=== PATIENT | female | born 2000 | race Caucasian/White ===

== ENCOUNTER 2022-07-29 13:59 | Outpatient (OUT) | payer BC, OTHER, SELFPAY ==
--- NOTE | 2022-07-29 14:01 | US_ITS ---
[address] [address] Patient Name: HUGH RIVERA MRN: [id number] date: 2000 Sex: F Assigned Patient Location: US Current Patient Location: US Accession/Order Number: [id number] Exam Date: 07/29/2022 14:05 Report Date: 07/29/2022 15:30 At the request of: PEDRO HUNT Procedure: US OB growth EXAMINATION: US OB growth HISTORY: O26.843 Size of fetus inconsistent with dates in third tri COMPARISON: Ultrasound anatomy 05/03/2022 FINDINGS: Heart Rate: 132.0 bpm Number: 1.0 Position: Cephalic Amniotic Fluid Volume: 25.0 cm Maximum Vertical Pocket: 7.9 cm BIOMETRY: BPD: 8.7 cm cm; 35 weeks 1 days; 97% HC: 31.9 cmcm; 36 weeks 0 days; 92% AC: 30.2 cm cm; 34 weeks 1 days; 88% FL: 6.4 cm cm; 33 weeks 2 days; 57% EFW: 2364.6 grams; 87% FL/AC: 21.4 FL/BPD: 73.9 HC/AC: 1.1 GESTATIONAL AGE: Age by EDC: 32 weeks 4 days BEHZAD by EDC: 09/19/2022 Age by US: 34 weeks 5 days BEHZAD by US: 09/04/2022 IMPRESSION: 1. Single live intrauterine with growth detailed above. Electronically authenticated by: LEIDY MAYORGA Date: 07/29/2022 15:30
== END 2022-07-29 14:00 ==
LOC: US 13:59
PROVIDERS: PCP Obstetrics & Gynecology; Visit Provider Obstetrics & Gynecology
DX: O26.843 Uterine size-date discrepancy, third trimester (principal); Z3A.32 32 weeks gestation of pregnancy
CPT/HCPCS: 76816

== ENCOUNTER 2022-08-24 20:39 | Outpatient (REF) | payer BC, OTHER, SELFPAY | END 2022-08-24 20:40 | disposition home or self-care (01) | LOC: LAB 20:39 | PROVIDERS: PCP Obstetrics & Gynecology; Visit Provider Obstetrics & Gynecology | DX: Z34.93 Encounter for supervision of normal pregnancy, unspecified, third trimester (principal) | CPT/HCPCS: 87081; 87150 ==

== ENCOUNTER 2022-09-15 05:05 | Inpatient (IN) | payer BC, OTHER, SELFPAY ==
[2022-09-15] VITALS (69 sets, daily range): BP systolic 97–163; BP diastolic 53–102; PULSE 80–130; RESP 16–20; TEMP 36.6–37.8
[2022-09-15 05:56] LABS: Hematocrit 35.4 % (36.0-48.0); Hemoglobin 11.7 g/dL (12.0-16.0); Mean Corpuscular HGB Conc 33.1 g/dL (29.9-35.2); Mean Corpuscular Hemoglobin 27.4 pg (26.7-34.0); Mean Corpuscular Volume 82.9 fL (81.0-99.0); Mean Platelet Volume 12.3 fL (9.5-13.5); Platelet Count 233 10^3/uL (150-450); Red Blood Count 4.27 10^6/uL (4.20-5.40); Red Cell Distribution Width 14.2 % (11.0-15.0); White Blood Count 14.2 10^3/uL (4.0-11.0)
[2022-09-15] MEDS: 0.9 % SODIUM CHLORIDE 1,000 ML 125 ML IV (06:13)
[2022-09-15] MEDS: AMPICILLIN SODIUM 2,000 MG in 0.9 % SODIUM CHLORIDE 100 ML 200 MG IV (06:32)
[2022-09-15] MEDS: OXYTOCIN 10 UNIT in 0.9 % SODIUM CHLORIDE 500 ML 6.012 UNIT IV (06:34)
--- NOTE | 2022-09-15 07:20 | W.PC.ACHO ---
Registration Status: ADM IN Primary Language: [place] Preferred Language: [place] Active Medications Generic Name Dose Route Start Last Admin Trade Name Carlosq PRN Reason Stop Dose Admin Carboprost Tromethamine 250 mcg 09/15/22 05:07 Carboprost Tromethamine 250 Mcg/Ml 1 Ml Vial IM Q15M PRN Bleeding Diphenhydramine HCl 25 mg 09/15/22 07:02 Diphenhydramine Hcl 50 Mg/Ml (1ml) Vial IV Q6H PRN Itching Ephedrine Sulfate 5 mg 09/15/22 07:02 Ephedrine Sulfate 50 Mg/Ml Vial IV Q5M PRN Blood Pressure - Low Fentanyl Citrate 100 mcg 09/15/22 07:02 Fentanyl Citrate/Pf 100 Mcg/2 Ml Vial EPIDURAL Q4H PRN Pain Sodium Chloride 1,000 mls @ 125 mls/hr 09/15/22 05:15 09/15/22 06:13 Sodium Chloride 0.9% 1,000 Ml IV 125 mls/hr .Q8H MEHDI Administration Oxytocin 10 unit/ Sodium 501 mls @ 6.012 mls/hr 09/15/22 05:15 09/15/22 06:34 Chloride IV 2 milliunit/min Q24H MEHDI 6.012 mls/hr Administration 2 MILLIUNIT/MIN Oxytocin 20 unit/ Sodium 1,002 mls @ 125 mls/hr 09/15/22 07:15 Chloride IV 09/15/22 15:14 Q8H PRN delivery Protocol Sodium Chloride 1,000 mls @ 1,000 mls/hr 09/15/22 07:02 Sodium Chloride 0.9% 1,000 Ml IV 09/15/22 08:01 .Q1H ONE Ropivacaine/Sodium Chloride 400 mg in 200 mls @ 6 mls/hr 09/15/22 07:15 Naropin 0.2% 400 Mg/200 Ml Bag EPIDURAL Q24H MEHDI Ampicillin 1,000 mg/ Sodium 50 mls @ 100 mls/hr 09/15/22 10:30 Chloride IV Q4H MEHDI Lidocaine 5 ml 09/15/22 05:07 Lidocaine Viscous 2% 15 Ml Topical Solution TOPICAL DIRECTED PRN Pain Lidocaine 1 ml 09/15/22 05:07 Lidocaine Hcl 1% 200 Mg/20 Ml Mdv INJ DIRECTED PRN Pain Lidocaine 5 ml 09/15/22 07:02 Lidocaine Hcl 2% Pf 100 Mg/5 Ml Vial INJ Q1H PRN Labor Pain Methylergonovine Maleate 0.2 mg 09/15/22 05:07 Methylergonovine Maleate 0.2 Mg Tablet PO Q4H PRN Uterine Contractility/Contract Methylergonovine Maleate 0.2 mg 09/15/22 05:07 Methylergonovine Maleate 0.2 Mg/Ml Ampule IM ONCE PRN Uterine Contractility/Contract Misoprostol 600 mcg 09/15/22 05:07 Misoprostol 100 Mcg Tablet PO ONCE PRN Uterine Bleeding Misoprostol 800 mcg 09/15/22 05:07 Misoprostol 100 Mcg Tablet SL ONCE PRN Uterine Bleeding Misoprostol 1,000 mcg 09/15/22 05:07 Misoprostol 100 Mcg Tablet MN ONCE PRN Uterine Bleeding Ondansetron HCl 4 mg 09/15/22 05:07 Ondansetron Pf 4 Mg/2 Ml Vial IV Q6H PRN Nausea And Vomiting Ondansetron HCl 4 mg 09/15/22 05:07 Ondansetron 4 Mg Rapdis Tablet SL Q6H PRN Nausea And Vomiting Oxytocin 10 unit 09/15/22 05:07 Oxytocin 100 Unit/10 Ml Vial IM ONCE PRN Uterine Bleeding Diet Category Date Time Status Clear Liquid Diet Diet 09/15/22 Breakfast Active Consults Category Date Time Status Consult to Anesthesiology Routine Cons 09/15/22 Ordered IV Insertion/Site Date of IV Line Insertion [20g 09/15/22 right Wrist] IV Insertion Time [20g right 05:40 Wrist] Neurology Patient orientation (short person,place,time,situation list) Respiratory Oxygen Delivery Method Room Air
[2022-09-15] MEDS: 0.9 % SODIUM CHLORIDE 1,000 ML 1000 ML IV ×2 (09:40→12:31)
[2022-09-15] MEDS: AMPICILLIN SODIUM 1,000 MG in 0.9 % SODIUM CHLORIDE 50 ML 100 MG IV ×2 (10:20→13:44)
[2022-09-15] MEDS: FENTANYL CITRATE/PF 100 MCG/2 ML VIAL EPIDURAL (11:14)
[2022-09-15] MEDS: ROPIVACAINE HCL/PF 400 MG/200 ML PREMIX 10 MG EPIDURAL (11:14)
[2022-09-15] MEDS: KETOROLAC TROMETHAMINE 30 MG/ML VIAL IVP (17:30)
--- NOTE | 2022-09-15 17:37 | PM.OBPRCVD ---
Procedure Intrapartal events: None Induction method: artificial rupture of membranes Delivery augmentation: rupture of membranes Delivery monitor: external FHT and external uterine Route of delivery: Laceration description: periurethral - 1st degree Delivery repair: Vicryl Estimated blood loss (mL): 325 Anesthesia type: Epidural Disposition: floor Delivery date: 09/15/22 Gender: male presentation: vertex Placental delivery description: Spontaneous cord description: 3 Vessels
--- NOTE | 2022-09-15 19:35 | W.PC.ACHO ---
Registration Status: ADM IN Primary Language: Belarusian Preferred Language: Belarusian Active Medications Generic Name Dose Route Start Last Admin Trade Name Freq PRN Reason Stop Dose Admin Acetaminophen 650 mg 09/15/22 17:49 Acetaminophen 325 Mg Tablet PO Q6H PRN Mild Pain Al Hydroxide/Mg Hydroxide 2,400 mg 09/15/22 17:49 Magnesium Hydroxide 2,400 Mg/10 Ml Oral.Susp PO Q6H PRN Dyspepsia Benzocaine/Menthol 1 applic 09/15/22 17:49 Benzocaine/Menthol 85 Gram Bottle TOPICAL ONCE PRN Pain Carboprost Tromethamine 250 mcg 09/15/22 05:07 Carboprost Tromethamine 250 Mcg/Ml 1 Ml Vial IM Q15M PRN Bleeding Diphenhydramine HCl 25 mg 09/15/22 07:02 Diphenhydramine Hcl 50 Mg/Ml (1ml) Vial IV Q6H PRN Itching Docusate Sodium 100 mg 09/16/22 09:00 Docusate Sodium 100 Mg Capsule PO BID MEHDI Ephedrine Sulfate 5 mg 09/15/22 07:02 Ephedrine Sulfate 50 Mg/Ml Vial IV Q5M PRN Blood Pressure - Low Fentanyl Citrate 100 mcg 09/15/22 07:02 09/15/22 11:14 Fentanyl Citrate/Pf 100 Mcg/2 Ml Vial EPIDURAL 100 mcg Q4H PRN Administration Pain Sodium Chloride 1,000 mls @ 125 mls/hr 09/15/22 05:15 09/15/22 14:15 Sodium Chloride 0.9% 1,000 Ml IV Infused .Q8H MEHDI Infusion Oxytocin 10 unit/ Sodium 501 mls @ 6.012 mls/hr 09/15/22 05:15 09/15/22 17:20 Chloride IV 0 milliunit/min Q24H MEHDI 0 mls/hr Infusion 2 MILLIUNIT/MIN Ropivacaine/Sodium Chloride 400 mg in 200 mls @ 6 mls/hr 09/15/22 07:15 09/15/22 11:14 Naropin 0.2% 400 Mg/200 Ml Bag EPIDURAL 10 ml/hrs Q24H MEHDI 10 mls/hr Administration Ampicillin 1,000 mg/ Sodium 50 mls @ 100 mls/hr 09/15/22 10:30 09/15/22 14:15 Chloride IV Infused Q4H MEHDI Infusion Oxytocin 20 unit/ Sodium 1,002 mls @ 125 mls/hr 09/15/22 17:41 09/15/22 17:51 Chloride IV 09/16/22 01:41 125 mls/hr Q8H STA 125 mls/hr Administration Protocol Oxytocin 20 unit/ Sodium 1,002 mls @ 125 mls/hr 09/15/22 18:00 Chloride IV 09/16/22 01:59 Q8H MEHDI Ibuprofen 600 mg 09/15/22 17:49 Ibuprofen 600 Mg Tablet PO Q6H PRN Moderate Pain Lidocaine 5 ml 09/15/22 05:07 Lidocaine Viscous 2% 15 Ml Topical Solution TOPICAL DIRECTED PRN Pain Lidocaine 1 ml 09/15/22 05:07 Lidocaine Hcl 1% 200 Mg/20 Ml Mdv INJ DIRECTED PRN Pain Lidocaine 5 ml 09/15/22 07:02 Lidocaine Hcl 2% Pf 100 Mg/5 Ml Vial INJ Q1H PRN Labor Pain Methylergonovine Maleate 0.2 mg 09/15/22 05:07 Methylergonovine Maleate 0.2 Mg Tablet PO Q4H PRN Uterine Contractility/Contract Methylergonovine Maleate 0.2 mg 09/15/22 05:07 Methylergonovine Maleate 0.2 Mg/Ml Ampule IM ONCE PRN Uterine Contractility/Contract Misoprostol 600 mcg 09/15/22 05:07 Misoprostol 100 Mcg Tablet PO ONCE PRN Uterine Bleeding Misoprostol 800 mcg 09/15/22 05:07 Misoprostol 100 Mcg Tablet SL ONCE PRN Uterine Bleeding Misoprostol 1,000 mcg 09/15/22 05:07 Misoprostol 100 Mcg Tablet PA ONCE PRN Uterine Bleeding Ondansetron HCl 4 mg 09/15/22 05:07 Ondansetron Pf 4 Mg/2 Ml Vial IV Q6H PRN Nausea And Vomiting Ondansetron HCl 4 mg 09/15/22 05:07 Ondansetron 4 Mg Rapdis Tablet SL Q6H PRN Nausea And Vomiting Oxytocin 10 unit 09/15/22 05:07 Oxytocin 100 Unit/10 Ml Vial IM ONCE PRN Uterine Bleeding Senna 17.2 mg 09/15/22 20:00 Sennosides 8.6 Mg Tablet PO QHS PRN Constipation Simethicone 80 mg 09/15/22 17:49 Simethicone 80 Mg Tab.Chew PO QID PRN Abdominal Distention Temazepam 15 mg 09/15/22 20:00 Temazepam 15 Mg Capsule PO BEDTIME PRN Sleep Witch Ena/Glycerin 1 each 09/15/22 17:49 Glycerin/Witch Ena 1 Each Jar TOPICAL ONCE PRN Pain Diet Category Date Time Status Regular Consistency Diet Diet 09/15/22 Dinner Active Consults Category Date Time Status Consult to Anesthesiology Routine Cons 09/15/22 Ordered IV Insertion/Site Date of IV Line Insertion [20g 09/15/22 right Wrist] IV Insertion Time [20g right 05:40 Wrist] Neurology Patient orientation (short person,place,time,situation list) Respiratory Oxygen Delivery Method Room Air Catheter Urinary Catheter Date of 09/15/22 Insertion [Urethral] Urinary Catheter Time of 11:15 Insertion [Urethral]
[2022-09-15] MEDS: ACETAMINOPHEN 325 MG TABLET 650 MG PO (21:40)
[2022-09-16] VITALS (7 sets, daily range): BP systolic 121–149; BP diastolic 76–93; PULSE 96–110; RESP 14–16; TEMP 36.4–36.9
[2022-09-16] MEDS: IBUPROFEN 600 MG TABLET PO ×2 (05:10→19:47)
[2022-09-16 07:43] LABS: Basophils Percent Auto 0.2 % (0.2-2.0); Eosinophils Percent Auto 0.3 % (0.9-7.0); Hematocrit 30.1 % (36.0-48.0); Hemoglobin 9.9 g/dL (12.0-16.0); Immature Granulocytes Abs Auto 0.07 10^3/uL (0.00-0.03); Immature Granulocytes Pct Auto 0.4 % (0.0-0.5); Lymphocytes Absolute Auto 2.8 10^3/uL (1.2-3.8); Lymphocytes Percent Auto 17.4 % (20.5-60.0); Mean Corpuscular HGB Conc 32.9 g/dL (29.9-35.2); Mean Corpuscular Hemoglobin 27.4 pg (26.7-34.0); Mean Corpuscular Volume 83.4 fL (81.0-99.0); Mean Platelet Volume 11.9 fL (9.5-13.5); Monocytes Absolute Auto 0.6 10^3/uL (0.3-0.8); Neutrophils Absolute Auto 12.4 10^3/uL (1.4-6.5); Neutrophils Percent Auto 77.7 % (43.0-75.0); Platelet Count 208 10^3/uL (150-450); Red Blood Count 3.61 10^6/uL (4.20-5.40); Red Cell Distribution Width 14.1 % (11.0-15.0)
--- NOTE | 2022-09-16 08:05 | PM.OBPN ---
OB - PN: Subj Subjective Patient comments: no complaints [place] status: doing well Exam Narrative Exam Narrative: s/p . 1 day post Constitutional Vital Signs, click to edit/add: Last Vital Signs Temp 98.5 F 09/16/22 04:34 Pulse 86 09/15/22 23:56 Resp 16 09/16/22 04:34 BP 116/69 09/15/22 23:56 O2 Del Method Room Air 09/16/22 04:34 Documenting provider has reviewed patient's vital signs: yes Common normals: no apparent distress HENMT Common normals: normocephalic Chest Common normals: inspection of chest normal Respiratory Common normals: normal respiratory effort Effort & inspection: able to speak in complete sentences Auscultation: clear to auscultation bilaterally Cardio Common normals: regular rate and regular rhythm Rate: regular rate Rhythm: regular rhythm GI Common normals: Normal to inspection, nondistended, normoactive bowel sounds present Palpation: soft Common normals: no CVA tenderness OB/external & speculum: deferred Back & Pelvis Common normals: no CVA tenderness Extremity Common normals: normal to inspection Neuro Common normals: oriented x3 Sensorium/orientation: awake, alert, oriented to person, oriented to place and oriented to time Psych Attitude: calm Results Labs Labs: Short CBC 09/16/22 Range/Units 07:20 WBC 16.0 H (4.0-11.0) 10^3/uL Hgb 9.9 L (12.0-16.0) g/dL Hct 30.1 L (36.0-48.0) % Plt Count 208 (150-450) 10^3/uL OB - PN: A/P Plan - Vaginal Delivery day: 1 Plan: routine care Time Spent with Patient Time: Total time spent is greater than 50% in coordination of care (as documented) at patient's floor/unit and/or counseling patient: Total time spent with greater than 50% in coordination of care (as documented) at patient's floor/unit and/or counseling patient: less than 15 minutes
[2022-09-16] MEDS: ACETAMINOPHEN 325 MG TABLET 650 MG PO ×2 (08:53→16:09)
[2022-09-16] MEDS: FERROUS SULFATE 325 MG TABLET PO (08:53)
[2022-09-16] MEDS: DOCUSATE SODIUM 100 MG CAPSULE PO (08:53)
== END 2022-09-16 20:15 | disposition home or self-care (01) | DRG 807 ==
PROVIDERS: Admitting Provider Obstetrics & Gynecology; PCP Obstetrics & Gynecology; Visit Provider Obstetrics & Gynecology
DX: O99.824 Streptococcus B carrier state complicating childbirth (principal); Z37.0 Single live birth; O70.0 First degree perineal laceration during delivery; Z3A.39 39 weeks gestation of pregnancy; O99.62 Diseases of the digestive system complicating childbirth; K21.9 Gastro-esophageal reflux disease without esophagitis
CPT/HCPCS: 36415; 51702; 59050; 59410; 80307; 85025; 85027; 86850; 86900; 86901; 96365; 96366; 96368; 96375; 96376

== ENCOUNTER 2022-12-06 20:49 | Outpatient (REF) | payer BC, OTHER, SELFPAY ==
[2022-12-10 13:08] LABS: Age Gdln ACOG Testing Note (.); IGP, rfx Aptima HPV ASCU Note (.)
== END 2022-12-06 20:50 | disposition home or self-care (01) ==
LOC: LAB 20:49
PROVIDERS: PCP Obstetrics & Gynecology; Visit Provider Obstetrics & Gynecology
DX: Z01.419 Encounter for gynecological examination (general) (routine) without abnormal findings (principal)
CPT/HCPCS: G0145

== ENCOUNTER 2024-02-23 16:56 | Outpatient (REF) | payer BC, OTHER, SELFPAY ==
[2024-03-01 14:07] LABS: Age Gdln ACOG Testing Note (.); IGP, rfx Aptima HPV ASCU Note (.)
== END 2024-02-23 16:57 | disposition home or self-care (01) ==
LOC: LAB 16:56
PROVIDERS: PCP Obstetrics & Gynecology; Visit Provider Obstetrics & Gynecology
DX: Z01.419 Encounter for gynecological examination (general) (routine) without abnormal findings (principal)
CPT/HCPCS: 88175

== ENCOUNTER 2025-02-26 18:56 | Outpatient (REF) | payer OTHER, SELFPAY ==
--- OUTSIDE RECORDS SUMMARY | 2025-02-26 15:00 | XMS_ITS | Encounter Summary ---
Author Organization [facility] Address [address] [place] [address] Care Team Providers Care Gas Reverser Name Role Phone Ania Barahona MD Primary Care Provider [phone] Reason for Visit * ReasonCommentsGynecologic Exam Encounter Details DateTypeDepartmentCare Team (Latest Contact Info)Yqylmymsefa53/30/2025 3:00 PM ESTProcedure Visit [facility] [address] [place] [address] Pamella Guardado PA [address] [place], [place] [id number] Well woman exam with routine gynecological exam Social History Tobacco UseTypesPacks/DayYears UsedDateSmoking Tobacco: NeverSmokeless Tobacco: NeverAlcohol UseStandard Drinks/WeekCommentsYes0 (1 standard drink = 0.6 oz pure alcohol)PHQ-2AnswerDate RecordedPatient Health Questionnaire-2 Toqlc45704/08/2024 Housing Stability Vital SignAnswerDate RecordedIn the last 12 months, was there a time when you were not able to pay the mortgage or rent on time?Patient evntnaa2301/05/2023In the last 12 months, how many places have you lived?1 01/05/2023In the last 12 months, was there a time when you did not have a steady place to sleep or slept in ashelter (including now)?No01/05/2023Humiliation, Afraid, Rape, and Kick questionnaireAnswerDate RecordedWithin the last year, have you been afraid of your partner or ex-partner?No02/04/2025Within the last year, have you been humiliated or emotionally abused in other ways by your partner or ex-partner?No02/04/2025Within the last year, have you been kicked, hit, slapped, or otherwise physically hurt by your partner or ex-partner?No 02/04/2025Within the last year, have you been raped or forced to have any kind of sexual activity by your partner or ex-partner?No02/04/2025Social Connection and Isolation PanelAnswerDate RecordedIn a typical week, how many times do you talk on the phone with family, friends, or neighbors?More than three times a week02/04/2025How often do you get together with friends or relatives?More than three times a week02/04/2025How often do you attend restoration or confucianism services?Never02/04/2025Do you belong to any clubs or organizations such as restoration groups, unions, fraternal or athletic groups, or school groups?No 02/04/2025How often do you attend meetings of the clubs or organizations you belong to?Never02/04/2025re you , , , , never , or living with a partner?Fdktrqx6702/04/2025UDIT-CAnswerDate RecordedQ1: How often do you have a drink containing alcohol?Monthly or less02/04/2025Q2: How many drinks containing alcohol do you have on a typical day when you are drinking?1 or Q3: How often do you have six or more drinks on one occasion?Never02/04/2025Overall Financial Resource Strain (CARDIA)AnswerDate RecordedHow hard is it for you to pay for the very basics like food, housing, medical care, and heating?Not hard at all02/04/2025[facility] - Occupational Stress QuestionnaireAnswerDate RecordedDo you feel stress - tense, restless, nervous, or anxious, or unable to sleep at night because yourmind is troubled all the time - these days?To some llekfs1902/04/2025 Exercise Vital SignAnswerDate RecordedOn average, how many days per week do you engage in moderate to strenuous exercise (like a brisk walk)?0 days02/04/2025On average, how many minutes do you engage in exercise at this level?0 min 02/04/2025Hunger Vital SignAnswerDate RecordedWithin the past 12 months, you worried that your food would run out before you got the money to buymore.Never true02/04/2025Within the past 12 months, the food you bought just didn't last and you didn't have money to get more.Never true02/04/2025PRAPARE - TransportationAnswerDate RecordedIn the past 12 months, has lack of transportation kept you from medical appointments or from getting medications?No 02/04/2025In the past 12 months, has lack of transportation kept you from meetings, work, or from getting things needed for daily living?No02/04/2025 Housing Stability Vital SignAnswerDate RecordedIn the last 12 months, was there a time when you were not able to pay the mortgage or rent on time?No02/04/2025In the past 12 months, how many times have you moved where you were living?1 02/04/2025t any time in the past 12 months, were you homeless or living in a residential (including now)?No02/04/2025B1300 Health LiteracyAnswerDate RecordedHow often do you need to have someone help you when you read instructions, pamphlets, or other written material from your doctor or pharmacy?Never 02/04/2025CommentsNoSex and Gender InformationValueDate RecordedSex Assigned at RmkzwRbbnkk68/25/2023 8:35 AM EDTLegal EweHsakpo53/15/2023 6:40 PM EDTGender KrrjbhquEjvymt75/25/2023 8:35 AM EDTSexual OrientationNot on file documented as of this encounter Last Filed Vital Signs Vital SignReadingTime TakenCommentsBlood Qtatohui898/8202/26/2025 3:00 PM EST Pulse--Temperature--Respiratory Rate--Oxygen Saturation--Inhaled Oxygen Concentration--Wuwmyd03.7 kg (200 lb)02/26/2025 3:00 PM PDPNrsljh632.2 cm (5' 7 )02/26/2025 3:00 PM ESTBody Mass Index31.321 3:00 PM ESTdocumented in this encounter Progress Notes * MANUELITO Otoole - 02/26/2025 3:00 PM EST Reason for Appointment: Patient ID: Mely Arce is a 24 y.o. female who presents for Gynecologic Exam Patient presents today for Annual Exam. 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 01/06/2023 Familial adenomatous polyposis 03/09/2023 Encounter for other contraceptive management 09/14/2023 Weight gain 12/02/2023 Well adult health check 02/05/2025 Major depressive disorder, single episode, moderate (HCC) 02/05/2025 Elevated blood pressure reading without diagnosis of hypertension 02/05/2025 Obesity (BMI 30-39.9) 02/05/2025 Resolved Ambulatory Problems Diagnosis Date Noted No Resolved Ambulatory Problems Past Medical History: Diagnosis Date Ovarian cyst, left 06/07/2020 Rectal bleeding HISTORY PAST MEDICAL HISTORY SOCIAL HISTORY Past Medical History: Diagnosis Date Ovarian cyst, left 06/07/2020 Rectal bleeding Social History Tobacco Use Smoking status: Never Smokeless tobacco: Never Substance Use Topics Alcohol use: Yes Alcohol/week: 0.0 - 1.0 standard drinks of alcohol Drug use: Never FAMILY HISTORY Family History Problem Relation Name Age of Onset Asthma Mother Cancer Maternal Grandfather Frankie SURGICAL HISTORY History reviewed. No pertinent surgical history. REVIEW OF SYSTEMS Review of Systems: Review of Systems Constitutional: Negative. HENT: Negative. Eyes: Negative. Respiratory: Negative. Cardiovascular: Negative. Gastrointestinal: Negative. Genitourinary: Negative. Musculoskeletal: Negative. Skin: Negative. Neurological: Negative. All other systems reviewed and are negative. Hematological: Negative. Endocrine: Negative. Allergic/Immunologic: Negative. OBJECTIVE Objective: Physical Exam Constitutional: Appearance: Normal appearance. Genitourinary: Right Adnexa: not tender and no mass present. Left Adnexa: not tender and no mass present. No cervical discharge. Breasts: Breasts are soft. Right: Normal. Left: Normal. HENT: Head: Normocephalic. Nose: Nose normal. Mouth/Throat: Mouth: Mucous membranes are moist. Cardiovascular: Rate and Rhythm: Normal rate. Pulmonary: Effort: Pulmonary effort is normal. Abdominal: General: Bowel sounds are normal. Palpations: Abdomen is soft. Musculoskeletal: General: Normal range of motion. Cervical back: Normal range of motion. Neurological: General: No focal deficit present. Mental Status: She is alert. Skin: General: Skin is warm and dry. Psychiatric: Mood and Affect: Mood normal. Vitals and nursing note reviewed. Exam conducted with a media production manager present. Vitals: Estimated body mass index is 31.32 kg/m?? as calculated from the following: Height as of this encounter: 5' 7 . Weight as of this encounter: 200 lb. BP: 128/82 Patient's last menstrual period was 02/08/2025 (approximate). Assessment/Plan ICD-10-CM 1. Well woman exam with routine gynecological exam Z01.419 Pap Smear Assessment/Plan Annual Exam: Patient presents today for an annual exam. Patient states she is doing well and has no complaints. Pap was obtained without difficulty. No orders of the defined types were placed in this encounter. Follow Up: Patient is to return in one year for annual unless needed otherwise. Documented by Nelly Winters MA on behalf of: MANUELITO Otoole documented in this encounter Plan of Treatment DateTypeDepartmentCare Team (Latest Contact Info)Kwsvttixqty88/06/2027 3:00 PM ESTProcedure Visit [facility] [address] [place] [phone] Pamella Guardado PA [address] [place], [place] [id number] NameTypePriorityAssociated DiagnosesOrder SchedulePap SmearPathology and CytologyRoutine Well woman exam with routine gynecological exam Ordered: 02/26/2025documented as of this encounter Visit Diagnoses Diagnosis Well woman exam with routine gynecological exam Routine gynecological examination documented in this encounter Care Teams Team MemberRelationshipSpecialtyStart DateEnd Date Ania Barahona MD [address] [place] [address] PCP - General07/28/22documented as of this encounter
--- OUTSIDE RECORDS SUMMARY | 2025-02-26 19:01 | XMS_ITS | Clinical Summary ---
Author Organization [facility] Address [address] [facility] [place] [address] Care Team Providers Care Fish Pitcher Name Role Phone Ania Barahona MD Primary Care Provider [phone] Allergies No known active allergies Medications MedicationSigDispense QuantityRefillsLast FilledStart DateEnd DateStatus cetirizine (ZyrTEC ALLERGY) 10 MG tablet Take 10 mg by mouth in the morning.Active metFORMIN (Glucophage) 500 MG tablet Indications:Weight gain,Encounter for weight managementTake 1 tablet (500 mg) by mouth in the morning. Take with meals. 90 tablet /ctive citalopram (CeleXA) 20 MG tablet Indications:Mood changesTake 1 tablet (20 mg) by mouth Daily 90 tablet /ctive drospirenone-ethinyl estradiol (Kiersten) 3-0.03 MG tablet Indications:Encounter for other contraceptive managementTake 1 tablet by mouth in the morning. 84 tablet 5Active omeprazole (PriLOSEC) [address] capsule Take 20 mg by mouth in the morning. Take before meals./10/2024 Discontinued(Other) drospirenone-ethinyl estradiol (Kiersten) 3-0.03 MG tablet Indications:Encounter for other contraceptive managementTake 1 tablet by mouth in the morning. 84 tablet /Discontinued(Reorder) metroNIDAZOLE (Flagyl) 500 MG tablet Indications:BV (bacterial vaginosis)Take 1 tablet (500 mg) by mouth in the morning and 1 tablet (500 mg) before bedtime. Do all this for 7 days. Do not drink alcohol while taking this medication. 14 tablet Discontinued(Other) Active Problems ProblemNoted DateDiagnosed DateWell adult health check02/05/2025 Assessment & Plan (02/05/2025 3:49 PM EST): Modest Alcohol consumption No Tobacco Seat Belt use Exercise Regularly No Text Drive Social Accountability Add Multivitamin with FeSo4 and Calcium and Vitamin D Major depressive disorder, single episode, qzzpvebr56/09/2025 Assessment & Plan (02/05/2025 3:48 PM EST): In Remission Elevated blood pressure reading without diagnosis of fnhupighglur46/09/2025 Assessment & Plan (02/05/2025 4:02 PM EST): Our specific goals, for your hypertension, is to keep your blood pressure less than 140/90, and theimportance of weight control. We made recommendations on how to control your blood pressure, and minimize your risk of these copmplications. We also discussed your current barriers to a healthy living and importance of healthy diet and exercise. Prior to your visit today we have reviewed your chart and formed a plan to assist with providing you the best possible care. We reviewed the possible complications of hypertension including, stroke, heart failure and kidney impairment. In addition, we discussed your medications, the importance of taking them as prescribed. DASH diet handouts Obesity (BMI 30-39.9)02/05/2025 Assessment & Plan (02/05/2025 4:10 PM EST): Exercise Regularly Reduce Portions Reduce Salt intake in the form of Preservatives in Boxed foods, Canned good, TV dinner Consider Adipex if BP is better at PRIM[employer] POWDER BLEND[employer] WET Weight gain12/02/2023Encounter for other contraceptive fqmscazdon30/17/2024 Familial adenomatous clwadkclu72/10/2024ongenital hypertrophy of retinal pigment epithelium of right eye01/06/2023Seasonal allergic ualyxjob50/30/2023 Encounters DateTypeDepartmentCare VezwOiqnxugvgva02/30/2025 3:00 PM ESTProcedure Visit [facility] [address] [place] [address] Pamella Guardado PA Well woman exam with routine gynecological exam02/26/2025amboo flowsheet [facility] [address] [place] [address] Pamella Guardado PA 02/10/2025Refill [facility] [address] [place] [address] Michael Azevedo DO Encounter for other contraceptive dukcwaixpw89/11/2025bstract [facility] [address] [facility] [address] [place] [phone] Ania Barahona MD 02/05/2025 4:00 PM ESTOffice Visit [facility] [address] [facility] [address] [place] [phone] Ania Barahona MD Well adult health check (Primary Dx); Major depressive disorder, single episode, moderate (HCC); Elevated blood pressure reading without diagnosis of hypertension; Obesity (BMI 30-39.9)02/05/2025amboo flowsheet [facility] [address] [facility] [address] [place] [phone] Ania Barahona MD 02/05/20254137Vzaecf96/08/6495Zqsokb82/27/1352Jdgfsm05/26/2025Telephone [facility] [address] [place] [address] Thea Arzate MA 01/18/2025Telephone [facility] [address] [place] [address] Nelly Winters MA 12/13/2024Refill [facility] [address] [place] [address] Danitza Garcia LPN Mood changesfrom Last 3 Months Immunizations ImmunizationAdministration DatesNext DagZVzN4007/13/2006DTaP, Unspecified 10/22/2002,02/06/2002,2001,2001HPV, Ozhysnvdzutu24/28/2016, 11/28/2014,09/20/2014Hep A, ped/adol, 2 dose03/27/2015,09/20/2014Hep B, Adolescent or Xoutltslg47/06/2003,2001,2001HiB, unspecified 07/30/2002,02/06/2002,2001,2001IPV07/13/2006,02/06/2002,2001, 2001Influenza, injectable, MDCK, preservative free, ledejbydrurb17/30/2021 Influenza, injectable, quadrivalent, preservative free01/06/2023,12/21/2019MMR 07/30/2002MMRV07/13/2006Meningococcal ZBV4U9410/03/2019,09/20/2014Pneumococcal Conjugate PCV ,2001Tdap09/20/20143922Iialqxemg78/01/2015 Family History Medical HistoryRelationNameCommentsCancerMaternal GrandfatherDennisAsthmaMother RelationNameStatusCommentsFatherAliveMaternal GrandfatherDennisMotherAlive Social History Tobacco UseTypesPacks/DayYears UsedDateSmoking Tobacco: NeverSmokeless Tobacco: Never Tobacco Cessation:Counseling Given: Not Answered Alcohol UseStandard Drinks/WeekCommentsYes0 (1 standard drink = 0.6 oz pure alcohol)PHQ-2AnswerDate RecordedPatient Health Questionnaire-2 Qscme33704/08/2024 Housing Stability Vital SignAnswerDate RecordedIn the last 12 months, was there a time when you were not able to pay the mortgage or rent on time?Patient ntaxpyy3601/05/2023In the last 12 months, how many places have you lived?1 01/05/2023In the last 12 months, was there a time when you did not have a steady place to sleep or slept in [facility] (including now)?No01/05/2023Humiliation, Afraid, Rape, and Kick questionnaireAnswerDate [...] times a week02/04/2025How often do you attend buddhism or holiness services?Never02/04/2025Do you belong to any clubs or organizations such as buddhism groups, unions, fraternal or athletic groups, or school groups?No 02/04/2025How often do you attend meetings of the clubs or organizations you belong to?Never02/04/2025re you , , , , never , or living with a partner?Jsesckj9902/04/2025UDIT-CAnswerDate RecordedQ1: How often do you have a [...] housing, medical care, and heating?Not hard at all02/04/2025[facility] [place] of Occupational Health - Occupational Stress QuestionnaireAnswerDate RecordedDo you feel stress - tense, restless, nervous, or anxious, or unable to sleep at night because yourmind is troubled all the time - these days?To some nmvgcg1502/04/2025 Exercise Vital SignAnswerDate RecordedOn average, how many [...] were you homeless or living in a assisted (including now)?No02/04/2025B1300 Health LiteracyAnswerDate RecordedHow often do you need to have someone help you when you read instructions, pamphlets, or other written material from your doctor or pharmacy?Never 02/04/2025CommentsNoSex and Gender InformationValueDate RecordedSex Assigned at RgjyfVnulus07/25/2023 8:35 AM EDTLegal IiqBfrfpo61/15/2023 6:40 PM EDTGender YdvrdwmjGxccsy09/25/2023 8:35 AM EDTSexual OrientationNot on file Last Filed Vital Signs Vital SignReadingTime TakenCommentsBlood Lcekszpt174/8212/ 3:00 PM EST Mimza95007/09/2025 3:35 PM ESTTemperature--Respiratory Fkgy378203/08/2022 8:06 AM ESTOxygen Mztxqywxev71%02/05/2025 3:35 PM ESTInhaled Oxygen Concentration-- Whoeio86.7 kg (200 lb)02/26/2025 3:00 PM KRSHzhxrj453.2 cm (5' 7 )02/26/2025 3:00 PM ESTBody Mass Index31.321 3:00 PM EST Plan of Treatment DateTypeDepartmentCare Team (Latest Contact Info)Pdazrmqxhrt62/06/2027 3:00 PM ESTProcedure Visit [facility] [address] [place] [address] Pamella Guardado PA [address] [facility] [address] [place] [address] Health MaintenanceDue DateLast DoneCommentsInfluenza Vaccine (#1)10/29/2024 01/06/2023, 02/26/2021, 12/21/2019Pneumococcal Vaccine: Pediatrics (0 to 5 Years) and At-Risk Patients (6 to 64 Years)Aged Out2001, 2001No longer eligible based on patient's age to complete this topic Insurance Care Teams Team MemberRelationshipSpecialtyStart DateEnd Date [place], Rugen M, MD [address] [address] [facility] - General07/28/22
--- OUTSIDE RECORDS SUMMARY | 2025-02-26 19:01 | XMS_ITS | Encounter Summary ---
Author Organization [facility] Address [address] [facility] [place] [address] Care Team Providers Care Senior Trial Attorney Name Role Phone Ania Barahona MD Primary Care Provider [phone] Encounter Details DateTypeDepartmentCare Team (Latest Contact Info)Eymwfdbbexw37/30/2025Bamboo flowsheet [facility] [address] [facility] [place] [phone] Pamella Guardado PA [address] [facility] [address] [place], [place] [phone] Social History Tobacco UseTypesPacks/DayYears UsedDateSmoking Tobacco: NeverSmokeless Tobacco: NeverAlcohol UseStandard Drinks/WeekCommentsYes0 (1 standard drink = 0.6 oz pure alcohol)PHQ-2AnswerDate RecordedPatient Health Questionnaire-2 Dpown77204/08/2024 Housing Stability Vital SignAnswerDate RecordedIn the last 12 months, was there a time when you were not able to pay the mortgage or rent on time?Patient sscpspe1401/05/2023In the last 12 months, how many places [...] times a week02/04/2025How often do you attend anglican or pentecostalism services?Never02/04/2025Do you belong to any clubs or organizations such as anglican groups, unions, fraternal or athletic groups, or school groups?No 02/04/2025How often do you attend meetings of the clubs or organizations you belong to?Never02/04/2025re you , , , , never , or living with a partner?Uorcwvv5602/04/2025UDIT-CAnswerDate RecordedQ1: How often do you have a [...] housing, medical care, and heating?Not hard at all02/04/2025[facility] [place] of Occupational Health - Occupational Stress QuestionnaireAnswerDate RecordedDo you feel stress - tense, restless, nervous, or anxious, or unable to sleep at night because yourmind is troubled all the time - these days?To some tlcdqv8802/04/2025 Exercise Vital SignAnswerDate RecordedOn average, how many [...] were you homeless or living in a longterm (including now)?No02/04/2025B1300 Health LiteracyAnswerDate RecordedHow often do you need to have someone help you when you read instructions, pamphlets, or other written material from your doctor or pharmacy?Never 02/04/2025CommentsNoSex and Gender InformationValueDate RecordedSex Assigned at YgexaXrarrl87/25/2023 8:35 AM EDTLegal IgoUxiztb23/15/2023 6:40 PM EDTGender PxklbxthArgkpa33/25/2023 8:35 AM EDTSexual OrientationNot on file documented as of this encounter Plan of Treatment DateTypeDepartmentCare Team (Latest Contact Info)Nxzyliahlej21/06/2027 3:00 PM ESTProcedure Visit [facility] [address] [place] [address] [place] [address] Pamella Guardado PA [address] [place] [address] [place] [address] documented as of this encounter Visit Diagnoses Not on filedocumented in this encounter Care Teams Team MemberRelationshipSpecialtyStart DateEnd Date Ania Barahona MD [address] [facility] [address] [place] [address] PCP - General07/28/22documented as of this encounter
--- OUTSIDE RECORDS SUMMARY | 2025-02-26 19:02 | XMS_ITS | CCD ---
Author Organization [facility] Providers Care Orthopedics Nurse Name Role Phone ROBERTO CARLOS ., DR VASQUEZ Admitting Unavailable ROBERTO CARLOS ., DR VASQUEZ Attending Unavailable KYLAH, DR AMEZQUITA Primary Care Unavailable ROBERTO CARLOS ., DR VASQUEZ Consulting Unavailable ROBERTO CARLOS ., DR VASQUEZ Admitting Unavailable ROBERTO CARLOS ., DR VASQUEZ Attending Unavailable KYLAH, DR AMEZQUITA Primary Care Unavailable ROBERTO CARLOS ., DR VASQUEZ Consulting Unavailable ROBERTO CARLOS ., DR VASQUEZ Admitting Unavailable ROBERTO CARLOS ., DR VASQUEZ Attending Unavailable KYLAH, DR AMEZQUITA Primary Care Unavailable ROBERTO CARLOS ., DR VASQUEZ Consulting Unavailable ZIEBER, DR LEIDY Campbell Consulting Unavailable ROBERTO CARLOS ., DR VASQUEZ Admitting Unavailable ROBERTO CARLOS ., DR VASQUEZ Attending Unavailable KYLAH, DR AMEZQUITA Primary Care Unavailable ARLINGTON, DR CATY Godfrey Consulting Unavailable ROBERTO CARLOS ., DR VASQUEZ Consulting Unavailable ROBERTO CARLOS ., DR VASQUEZ Admitting Unavailable ROBERTO CARLOS ., DR VASQUEZ Attending Unavailable KYLAH, DR AMEZQUITA Primary Care Unavailable ROBERTO CARLOS ., DR VASQUEZ Consulting Unavailable ELIZABETH ., ANA LILIA Admitting Unavailable ELIZABETH ., ANA LILIA Attending Unavailable KYLAH, DR AMEZQUITA Primary Care Unavailable ELIZABETH ., ANA LILIA Consulting Unavailable ROBERTO CARLOS ., DR VASQUEZ Admitting Unavailable ROBERTO CARLOS ., DR VASQUEZ Attending Unavailable KYLAH, DR AMEZQUITA Primary Care Unavailable ROBERTO CARLOS ., DR VASQUEZ Consulting Unavailable ROBERTO CARLOS ., DR VASQUEZ Admitting Unavailable ROBERTO CARLOS ., DR VASQUEZ Attending Unavailable KYLAH, DR AMEZQUITA Primary Care Unavailable ROBERTO CARLOS ., DR VASQUEZ Consulting Unavailable ROBERTO CARLOS ., DR VASQUEZ Admitting Unavailable ROBERTO CARLOS ., DR VASQUEZ Attending Unavailable KYLAH, DR AMEZQUITA Primary Care Unavailable ROBERTO CARLOS ., DR VASQUEZ Consulting Unavailable Kylah Ania GASTON Primary Care Provider [phone] KYLAHLEETRISTAN [facility]OS[facility]ITALMikey Primary Care Unavailable ISA GARCES Attending Unavailable LINDEN ORDOÑEZ Referring Unavaila ble ANIA [facility] Unavailable Ania Montero MD Primary Care Provider [phone] Christian Blake MD Unavailable LINDEN CASIANO Attending Unavailable FIONA TERRY Referring Unavailable LINDEN CASIANO Attending Unavailable ANA LILIA JOHNSON Attending Unavailable ANA LILIA JOHNSON Attending Unavailable PEDRO AZEVEDO Attending Unavailable Medications Current Medications MedicationDrug Class(es)DatesSig (Normalized)Sig (Original)cetirizine hydrochloride 10 mg oral tablet (5 sources)Histamine-1 Receptor AntagonistStart: 94-70-5906xyri 1 tablet by mouth once dailyCetirizine (Zyrtec) 10 mg tablet Active 10 MG PO Daily June 04, 2023 12:00amcitalopram 20 mg oral tablet (5 sources)Serotonin Reuptake InhibitorStart: 12-02-2023 End: 57-19-9450ndxo 1 tablet by mouth once dailycitalopram (CeleXA) 20 MG tablet Indications: Mood changes Take 1 tablet (20 mg) by mouth Daily 30 tablet 3 12/02/2023 ActiveStart: 61-09-3110pyxz 20 mg by mouth once dailyCitalopram Active 20 MG PO Daily June 04, 2023 12:00amdrospirenone 3 mg / ethinyl estradiol 0.03 mg oral tablet (5 sources)Progestin, EstrogenStart: 36-00-4193gkzcwpwwxcfn-ethinyl estradiol (Kiersten) 3-0.03 MG tablet Indications: Encounter for other contraceptive management Take 1 tablet by mouth in the morning. 84 tablet 3 12/09/2023 Active Start: 06-01-2856Bzgvilbmyzte-Ethinyl Estradiol (Kiersten) 3-0.03 mg tablet Active 1 TAB PO Daily June 04, 2023 12:00ammetFORMIN hydrochloride 500 mg oral tablet (4 sources)BiguanideStart: 12-09-2023 End: 68-68-9918wlxu 1 tablet by mouth at mealtimemetFORMIN (Glucophage) 500 MG tablet Indications: Weight gain , Encounter for weight management Take 1 tablet (500 mg) by mouth in the morning. Take with meals. 90 tablet 3 12/09/2023 12/08/2024 ActiveMultivitamin (Multiple Vitamins) tablet (1 source)Start: 51-55-3000idxt 1 tablet by mouth once dailyMultivitamin (Multiple Vitamins) tablet Active 1 TAB PO Daily June 04, 2023 12:00am omeprazole 20 mg delayed release oral capsule (5 sources)Proton Pump InhibitorStart: 66-31-9139mjid 1 capsule by mouth before mealtimeomeprazole (PriLOSEC) [address] capsule Take 20 mg by mouth in the morning. Take before meals. 04/20/2022 Activephentermine hydrochloride 37.5 mg oral tablet (3 sources)Sympathomimetic Amine AnorecticStart: 08-04-2023 End: 81-66-3265mkan 1 tablet by mouth before mealtimephentermine (Adipex-P) 37.5 MG tablet Indications: Encounter for weight management Take 1 tablet (37.5 mg) by mouth in the morning. Take before meals. 90 tablet 08/04/2023 02/23/2024 Discontinued Problems Active Problems Problem ClassificationProblemDateDocumented DateEpisodic/ChronicImmunizations and screening for infectious disease (1 source)Encounter for screening for infections with a predominantly sexual mode of transmission; Translations: [ENC SCREEN INFECTIONS SEXL TRANSMS]Onset: 25-43-5348WcalazseIhirhilvj disorders (4 sources)Irregular menstruation, unspecified; Translations: [IRREGULAR MENSTRUATION UNSPECIFIED]Onset: 40-30-7768JjztvjoJywrv congenital anomalies (1 source)Congenital hypertrophy of retinal pigment epithelium ; Translations: [Congenital malformation of retina]33-85-4951DlrgnyfGjjwr congenital anomalies (4 sources)Congenital malformation of retina; Translations: [Other retinal changes, congenital]Onset: 906705-39-4533AcrnchbEoakm female genital disorders (4 sources)Other specified noninflammatory disorders of vagina; Translations: [OTH SPEC NONINFLAMMATORY D/O VAGINA]Onset: 64-20-1338HbregfpxRrwce and delivery including normal (9 sources)Encounter for supervision of normal , unspecified, unspecified trimester; Translations: [Encounter for supervision of other normal , first trimester]Onset: 50-59-2447GrfakbycDkbex screening for suspected conditions (not mental disorders or infectious disease) (8 sources)Encounter for screening for diabetes mellitus; Translations: [Encounter for other specified screening]Onset: 34-72-0576Ojxnjwef Other upper respiratory disease (4 sources)Seasonal allergic rhinitis; Translations: [Other seasonal allergic rhinitis]Onset: 169441-35-5514HfpjnflVssvgftr codes; unclassified (1 source)Family history of malignant neoplasm of pancreas; Translations: [Family history of malignant neoplasm of digestive organs]67-09-5884Tikvvnlt Past or Other Problems Problem ClassificationProblemDateDocumented DateEpisodic/ChronicContraceptive and procreative management (4 sources)Patient encounter status; Translations: [Encounter for other contraceptive management]Onset: 188293-87-1196LtyiqicvHcdgc and unspecified benign neoplasm (4 sources)Familial multiple polyposis syndrome; Translations: [Familial adenomatous polyposis]Onset: 662846-35-3515VvagzyuuDduzm nutritional; endocrine; and metabolic disorders (4 sources)Weight increased; Translations: [Abnormal weight gain]Onset: 369597-88-0960ZivouawhZiikewns codes; unclassified (1 source)9 weeks gestation of ; Translations: [9 WEEKS GESTATION OF ]Onset: 16-73-2290Unsjxkfg Results Test NameValueInterpretationReference RangeFacilityCNPNon 93-56-5560KGRB Telephone (CORWIN) HUGH PATEL ([id number]) 2 F Date Time Provider Department 06/14/23 ISA GARCES During your visit today, we recorded the following information about you: Isa Garces LGC 06/14/2023 11:11 AM Signed Patient name and was confirmed at initiation of discussion. Hugh Patel's Multi-Cancer panel through [employer] was negative for a pathogenic variant. Please see [employer] message for further discussion. Isa Garces MS, [facility] Licensed, Certified Genetic Counselor Allergies As of Date: 06/14/2023 (Not on File) Date Reviewed: Never Reviewed Problem List As Of Date: 06/14/2023 (None) Encounter Status:Closed by ISA GARCES on [facility]14/23[facility] 1on [id number] SCAN TEST RESULTS 1View results in Scanned Documents link when availableNoBlanchard Valley Health System Bl[facility] Valley HospitalComment on above: Order Comment: Specimen Type: BLOOD SPECIMEN Ordering Facility: [facility] Address: [address] [place], [place] [address]Performed By: #### MISC1 #### NON-INTERFACED REF LABS CLIA SEE SCANNED RESULTSREFERRAL LAB 1[facility]NoBl[facility] Comment on above:Order Comment: Specimen Type: BLOOD SPECIMEN Ordering Facility: [facility] Address: [address] [place], [place] [address]Performed By: #### MISC1 #### NON-INTERFACED REF LABS CLIA SEE SCANNED RESULTSTEST 1Multi Cancer PanelNoBlanchard Valley [facility] Comment on above:Order Comment: Specimen Type: BLOOD SPECIMEN Ordering Facility: [facility] Address: [address] [place], [place] [address]Performed By: #### MISC1 #### NON-INTERFACED REF LABS CLIA SEE SCANNED RESULTSNo Panel InformationOrdered By: Joellen Mata on 45-11-9360Karbc Strep (POC)[facility] CenterCBC AUTO DIFFon [id number] #0.0 103/ulNormal0.0-0.1The [facility] CenterComment on above: Performed By: #### CBC #### [facility] [address] [place], [place] [address] Dr. Ceasar Popesophils/100 WBC (Bld)0.2 %Normal0.2-2.0The [facility] Comment on above:Performed By: #### CBC #### [facility] [address] [place] [address] Dr. Ceasar Anne #0.1 103/ulNormal0.0-0.7The [facility] CenterComment on above: Performed By: #### CBC #### [facility] [address] [place] [address] Dr. Ceasar Adornoosinophils/100 WBC (Bld)0.7 %Critically low0.9-7.0The [facility] CenterComment on above:Performed By: #### CBC #### [facility] [address] [place] [address] Dr. Ceasar Adornorythrocyte distribution width (RBC) [Ratio]13.1 %Zbgaso60.0-15.0 The [facility] CenterComment on above:Performed By: #### CBC #### [facility] [address] [place] [address] Dr. Ceasar MartinsHematocrit (Bld) [Volume fraction]36.0 %Hlydta44.0-48.0The [facility] CenterComment on above:Performed By: #### CBC #### [facility] [address] [place] [address] Dr. Ceasar MartinsHemoglobin (Bld) [Mass/Vol]12.1 g/oLEjvglm66.0-16.0The [facility] CenterComment on above:Performed By: #### CBC #### [facility] [address] [place] [address] Dr. Ceasar Handy #0.04 10e3/ulCritically high0.00-0.03The [facility] Comment on above:Performed By: #### CBC #### [facility] [address] [place] [address] Dr. Ceasar Handy %0.4 %Normal0.0-0.5The [facility] CenterComment on above: Performed By: #### CBC #### [facility] [address] [place] [address] Dr. Ceasar White #2.4 103/ulNormal1.2-3.8The [facility] CenterComment on above:Performed By: #### CBC #### [facility] [address] [place] [address] Dr. Ceasar Zaldivarmphocytes/100 WBC (Bld)22.3 %Pbbdub78.5-60.0The [facility] CenterComment on above:Performed By: #### CBC #### [facility] [address] [place] [address] Dr. Ceasar Montes DIFF REQNONormalThe [facility] CenterComment on above: Performed By: #### CBC #### [facility] [address] [place] [address] Dr. Ceasar Juan (RBC) [Entitic mass]28.7 oyXdyaix60.7-34.0The [facility] CenterComment on above:Performed By: #### CBC #### [facility] [address] [place] [address] Dr. Ceasar Juan (RBC) [Mass/Vol]33.6 g/aRKqikye62.9-35.2The [facility] CenterComment on above:Performed By: #### CBC #### [facility] [address] [place] [address] Dr. Ceasar Anaya (RBC) [Entitic vol]85.3 nBSrcutt74.0-99.0The [facility] CenterComment on above:Performed By: #### CBC #### [facility] [address] [place] [address] Dr. Ceasar Hernández #0.5 103/ulNormal0.3-0.8The [facility] CenterComment on above:Performed By: #### CBC #### [facility] [address] [place] [address] Dr. Ceasar Diazocytes/100 WBC (Bld)4.8 %Normal1.7-12.0The [facility] Comment on above:Performed By: #### CBC #### [facility] [address] [place] [address] Dr. Ceasar Reynolds #7.8 103/ulCritically high1.4-6.5The [facility] Comment on above:Performed By: #### CBC #### [facility] [address] [place] [address] Dr. Ceasar MartinsNeutrophils/100 WBC (Bld)71.6 %Nojmbk77.0-75.0The [facility] CenterComment on above:Performed By: #### CBC #### [facility] [address] [place] [address] Dr. Ceasar MartinsPlatelet mean volume (Bld) [Entitic vol]10.9 fLNormal9.5-13.5The [facility] CenterComment on above:Performed By: #### CBC #### [facility] [address] [place] [address] Dr. Ceasar MartinsPLT243 103/khBxfepc682-083Fvc [facility] CenterComment on above: Performed By: #### CBC #### [facility] [address] [place] [address] Dr. Ceasar MartinsRBC4.22 106/ulNormal4.20-5.40The [facility] CenterComment on above:Performed By: #### CBC #### [facility] [address] [place] [address] Dr. Ceasar MartinsWBC10.9 103/ulNormal4.0-11.0The [facility] CenterComment on above:Performed By: #### CBC #### [facility] [address] [place] [address] Dr. Ceasar MartinsGLUCOSE - 1HRon 21-71-0248Nxerhaz [Mass/Vol]108 mg/dLCritically vkte22-340Epg [facility] CenterComment on above:Performed By: #### GLU1HR #### [facility] [address] [place] [address] Dr. Ceasar Rader PREG ANATOMY SINGLEon 69-44-4593AR PREG ANATOMY SINGLE EXAMINATION: US PREG ANATOMY SINGLE HISTORY: anatomy study COMPARISON: No relevant comparison available. TECHNIQUE: Transabdominal sonographic examination was performed for obstetrical and evaluation. FINDINGS: Number: 1 Heart Rate: 146.0 bpm H.B. /min Amniotic Fluid Volume: Subjectively normal Placental Location: Anterior. Grade 0. Placental edge 4.3 cm from the os, position: Cephalic presentation, longitudinal lie Cervix Length: 3.9 cm, closed Normal structures: Cerebellum. Choroid plexus. Cisterna magna. Lateral cerebral ventricles. Orbits. Midline falx. Hard palate. 4-chamber heart. RVOT. LVOT. Stomach. Kidneys. Bladder. Umbilical cord insertion into abdomen. 3 vessel cord. Cervical spine. Thoracic spine. Lumbar spine. Sacral spine. Right upper extremity. Left upper extremity. Right lower extremity. Left lower extremity. Suboptimally seen: None. Abnormalities/Other: None BIOMETRY: BPD: 4.9 cm 20 weeks 5 days , 73% HC: 18.1 cm 20 weeks 4 days, 60% AC: 16.2 cm 21 weeks 2 days, 80% FL: 3.4 cm 20 weeks 4 days, 58% EFW:385.9 grams; 86%, 14 ounces FL/AC: 20.8 FL/BPD: 69.3 HC/AC: 1.1 GESTATIONAL AGE: Age by EDC: 20 weeks 1 days BEHZAD by EDC: 09/19/22 Age by current US: 20 weeks 6 days BHEZAD by current US: 09/14/22 IMPRESSION: Normal anatomy scan *Reference: [facility] Practice Guideline for the performance of Obstetric Ultrasound Examinations, November 28, 2006. Electronically authenticated by: CATY MARIE Date: 2022-05-03 15:12[facility] HospitalP MATERNAL FOR SPINA BIFIDAon 88-74-1440URU MoM0.52[facility] - ColumbusComment on above:Performed By: #### CBC #### [facility] [address] [place] [address] Dr. Ceasar Agudelo Value43.1 ng/mLNGlenbeigh HospitalComment on above: Performed By: #### CBC #### [facility] [address] [place] [address] [address] Ceasar Agudelo, Serum for Spina BifidaReportSelect Medical Specialty Hospital - [place] Comment on above:Performed By: #### CBC #### [facility] [address] [address] [address] Ceasar StubbsMcCullough-Hyde Memorial Hospital on above:Result Comment: Xochilt Guo, Ph.D., [facility] Director . References: Available Upon Request. . Multiples Of Median Cutoffs For AFP Elevations West 2.5 Black 2.8 IDD 2.0 Twins 4.5 Abbreviation Definitions IDD - Insulin Dep Diabetes OSBR - Open Spina Bifida Risk . For further inquiries contact [employer] [facility] at [phone]. . This test was developed and its performance characteristics determined by [employer]. It has not been cleared or approved by the Food and Drug Administration.Performed By: #### CBC #### [facility] [address] [place] [address] Dr. Ceasar Fischer Age Collection Date23.3 weeksSelect [facility] Comment on above:Performed By: #### CBC #### [facility] [address] [place] [address] Dr. Ceasar Fischerat, Age Based onLMPNRegency Hospital Toledo on above:Result Comment: 11/12/2021 Recalculations are not recommended when gestational dating by LMP and ultrasound are within 10 days.Performed By: #### CBC #### [facility] [address] [place] [address] Dr. Ceasar Bagley Dep [facility] on above:Performed By: #### CBC #### [facility] [address] [place] [address] Dr. Ceasar MartinsInterpretationMcCullough-Hyde Memorial Hospital on above: Result Comment: Interpretation: Screen Negative . This result is screen negative for OSB. The AFP MoM calculated is based on the gestational age provided. MS-AFP can identify up to 80% of open neural tube defects. Closed neural tube defects and some open defects may not be detected by this test. This test does not screen for Down Syndrome or Trisomy 18. If screening for Down Syndrome or Trisomy 18 is desired, contact [employer] to discuss available options. The [employer] recommends amniocentesis be offered to women age 35 and older.Performed By: #### CBC #### [facility] [address] [address] [address] Ceasar Waller Age at ED[age] yrNoCoshocton Regional Medical CenterComment on above:Performed By: #### CBC #### [facility] [address] [place] [address] Dr. Ceasar Humphreyltiple GestationNoNGlenbeigh HospitalComment on above: Performed By: #### CBC #### [facility] [address] [place] [address] Dr. Ceasar ParryBR Risk 1 [id number] Regional Medical CenterComsurgeons choice medical center on above: Performed By: #### CBC #### [facility] [address] [place] [address] Dr. Ceasar Arce.NormalThe [facility] CenterComment on above:Performed By: #### CBC #### [facility] [address] [place] [address] Dr. Ceasar QuirozCaucasianNGlenbeigh HospitalComment on above: Performed By: #### CBC #### [facility] [address] [place] [address] Dr. Ceasar Jones Results:NegativeWhite Hospital on above: Performed By: #### CBC #### [facility] [address] [place] [address] Dr. Ceasar MartinsCHLAMYDIA/GONOCOCCUS CEFERINO (SWAB/URINE/PAPon 86-43-6486Hnlhqmqmk trachomatis, NAANegativeNormalNegativeCincinnati [facility] on above: Performed By: #### CT/NGNA #### [facility] [address] [place] [address] Dr. Ceasar MartinsNeisseria gonorrhoeae, NAANegativeNormalNegativeCincinnati Children's Hospital Medical Center on above:Performed By: #### CT/NGNA #### [facility] [address] [place] [address] Dr. Ceasar MartinsVAGINITIS/VAGINOSIS DNA PROBEon 19-05-2039Xamnmup speciesNegative NormalNegativeSelect Medical Specialty Hospital - ColumbusComment on above:Performed By: #### CBC #### [facility] [address] [place] [address] Dr. Ceasar Ndiayeerella vaginalisNegativeNormalNegativeSelect Medical Specialty [facility] - [place] Comment on above:Performed By: #### CBC #### [facility] [address] [place] [address] Dr. Ceasar MartinsTrichomonas vaginalisNegativeNormalNegativeSelect Medical Specialty Hospital - [place] Comment on above:Performed By: #### CBC #### [facility] [address] [place] [address] Dr. Ceasar Bell 1 AND 2 WITH REFLEXon 05-70-4232MOR Screen 4th Generation wRfxNon-ReactiveNormalNon ReactiveThe [facility] Medical CenterComment on above:Result Comment: HIV Negative HIV-1/HIV-2 antibodies and HIV-1 p24 antigen were NOT detected. There is no laboratory evidence of HIV infection.Performed By: #### HIV12 #### [facility] [address] [place] [address] Dr. Ceasar Chau B SURFACE ANTIGEN SCREENon 13-92-5040OHkZv ScreenNegative NormalNegativeSelect Medical Specialty Hospital - ColumbusComment on above:Performed By: #### CBC #### [facility] [address] [place] [address] Dr. Ceasar LernerTIS C VIRUS AB W/ REFLEX QUANTon 07-21-7791TRD AB<0.1Normal 0.0-0.9The [facility] CenterComment on above:Performed By: #### HCVPCRR #### [facility] [address] [place] [address] Dr. Ceasar MartinsInterpretation:CommentNormalThe [facility] Medical CenterComment on above:Result Comment: Negative Not infected with HCV, unless recent infection is suspected or other evidence exists to indicate HCV infection.Performed By: #### HCVPCRR #### [facility] [address] [place] [address] Dr. Ceasar MartinsRPR QUANTon 90-33-6490Uqelz Plasma Reagin, QuantNon-Reactive NormalNonRea<1:1The [facility] on above:Result Comment: Please Note: This test does not meet current guidelines for screening and diagnosis of syphilis. This test is intended for following treatment response in patients being treated for syphilis infection. To screen for syphilis infection, a reflex cascade that includes both RPR and a treponema-specific assay should be utilized, such as Treponema pallidum (Syphilis) Screening [place] (630726) or Rapid Plasma Reagin (RPR) Test With Reflex to Quantitative RPR and Confirmatory Treponema pallidum Antibodies (139570).Performed By: #### RPRQ #### [facility] [address] [place] [address] Dr. Ceasar Carroll AB IGGon 16-53-7275Dszenyt Antibodies, IgG0.92 index Critically lowImmune >0.99The [facility] on above:Result Comment: A second sample should be collected and tested no less than 2-4 weeks. Non-immune <0.90 Equivocal 0.90 - 0.99 Immune >0.99Performed By: #### RUBIGG #### [facility] [address] [place] [address] Dr. Ceasar Reza AUTO DIFFon [id number] #0.0 103/ulNormal0.0-0.1McKitrick Hospitalment on above:Performed By: #### CBC #### [facility] [address] [place] [address] Dr. Ceasar MartinsBasophils/100 WBC (Bld)0.2 %Normal0.2-2.0[facility] Comment on above:Performed By: #### CBC #### [facility] [address] [place] [address] Dr. Ceasar Anne #0.1 103/ulNormal0.0-0.7The [facility] CenterComment on above: Performed By: #### CBC #### [facility] [address] [place] [address] Dr. Ceasar Adornoosinophils/100 WBC (Bld)0.8 %Critically low0.9-7.0The [facility] Hospitalment on above:Performed By: #### CBC #### [facility] [address] [place] [address] Dr. Ceasar Adornorythrocyte distribution width (RBC) [Ratio]13.3 %Jzejzw11.0-15.0 The [facility] CenterComsurgeons choice medical center on above:Performed By: #### CBC #### [facility] [address] [place] [address] Dr. Ceasar MartinsHematocrit (Bld) [Volume fraction]37.9 %Irzwwf12.0-48.0The [facility]iku HospitalComment on above:Performed By: #### CBC #### [facility] [address] [place] [address] Dr. Ceasar MartinsHemoglobin (Bld) [Mass/Vol]13.3 g/oTEmmpsm33.0-16.0The [facility] Medical CenterComment on above:Performed By: #### CBC #### [facility] [address] [place] [address] Dr. Ceasar Handy #0.03 10e3/ulNormal0.00-0.03The [facility] CenterComsurgeons choice [facility] on above:Performed By: #### CBC #### [facility] [address] [place] [address] Dr. Ceasar Handy %0.3 %Normal0.0-0.5The [facility] on above: Performed By: #### CBC #### [facility] [address] [place] [address] Dr. Ceasar WhiteH #2.2 103/ulNormal1.2-3.8The [facility] Medical CenterComment on above:Performed By: #### CBC #### [facility] [address] [place] [address] Dr. Ceasar Whitehocytes/100 WBC (Bld)22.2 %Cavtrk42.5-60.0The [facility] Medical CenterComment on above:Performed By: #### CBC #### [facility] [address] [place] [address] Dr. Ceasar AllenUAL DIFF REQNONormalThe [facility]field Medical CenterComment on above: Performed By: #### CBC #### [facility] [address] [address] [address] Ceasar Juan (RBC) [Entitic mass]28.2 kyAlxofn68.7-34.0The [facility] Medical CenterComment on above:Performed By: #### CBC #### [facility] [address] [place] [address] Dr. Ceasar Juan (RBC) [Mass/Vol]35.1 g/wGEagktb15.9-35.2The [facility] Medical CenterComment on above:Performed By: #### CBC #### [facility] [address] [place] [address] Dr. Ceasar Juan (RBC) [Entitic vol]80.5 fLCritically low81.0-99.0The [facility] Medical CenterComment on above:Performed By: #### CBC #### [facility] [address] [place] [address] Dr. Ceasar Hernández #0.4 103/ulNormal0.3-0.8The [facility] Medical CenterComment on above:Performed By: #### CBC #### [facility] [address] [place] [address] Dr. Ceasar Diazocytes/100 WBC (Bld)4.3 %Normal1.7-12.0[facility] Comment on above:Performed By: #### CBC #### [facility] [address] [place] [address] Dr. Ceasar Reynolds #7.3 103/ulCritically high1.4-6.5[facility] Comment on above:Performed By: #### CBC #### [facility] [address] [place] [address] Dr. Ceasar Markhamutrophils/100 WBC (Bld)72.2 %Hngnck14.0-75.0The [facility] Medical CenterComment on above:Performed By: #### CBC #### [facility] [address] [place] [address] Dr. Ceasar Carrillo mean volume (Bld) [Entitic vol]10.9 fLNormal9.5-13.5The [facility] Medical CenterComment on above:Performed By: #### CBC #### [facility] [address] [place] [address] Dr. Ceasar MartinsPLT244 103/swCodfmd914-356Hzd [facility] CenterComsurgeons [facility] on above: Performed By: #### CBC #### [facility] [address] [place] [address] Dr. Ceasar MartinsRBC4.71 106/ulNormal4.20-5.40The [facility] Medical CenterComment on above:Performed By: #### CBC #### [facility] [address] [place] [address] Dr. Ceasar MartinsWBC10.1 103/ulNormal4.0-11.0The [facility] on above:Performed By: #### CBC #### [facility] [address] [place] [address] Dr. Ceasar MartinsCULTLEN URINEon 61-81-6680JSWRLEP URINECulture Observations: NO GROWTH.NormalThe [facility]field Medical CenterComment on above:Performed By: #### CBC #### [facility] [address] [place] [address] Dr. Ceasar MartinsGLYCOHEMOGLOBIN A1Con 91-04-1204SXZ RECOMMENDATIONSEE BELOWNormKettering HealthComsurgeons choice medical center on above:Result Comment: ADA RECOMMENDED LIMIT 4.0 - 6.0 ADA THERAPEUTIC TARGET < 7.0 ACTION SUGGESTED > 7.0Performed By: #### A1C #### [facility] [address] [place] [address] Dr. Ceasar MartinsGlucose [Mass/Vol]97 mg/dLNoalThCleveland Clinic Medina HospitalComsurgeons choice medical center on above:Performed By: #### A1C #### [facility] [address] [place] [address] Dr. Ceasar MartinsHbA1c (Bld) [Mass fraction]5.0 %Normal4.5-6.2The [facility] CenterComsurgeons [facility] medical center on above:Performed By: #### A1C #### [facility] [address] [place] [address] Dr. Ceasar Mckenzie BOX TEST PT SEND OUTon 30-42-6626RXDW TO REF LAB03/09/2022 NormalSelect Medical Specialty Hospital - ColumbusComment on above:Performed By: #### CBC #### [facility] [address] [address] [address] Ceasar Evans AND SCREENon 57-96-4634RZSA AND SCREENNegativeSelect Medical Specialty Hospital - ColumbusComment on above:Performed By: #### CBC #### [facility] [address] [place] [address] Dr. Ceasar Rader PREG TVon 58-19-6645MQ PREG TVEXAMINATION: US PREG TV HISTORY: Missed period COMPARISON: No relevant comparison available. FINDINGS: GESTATIONAL SAC: Present and normal appearing. YOLK SAC: Present and normal appearing. POLE: Present and normal appearing. CARDIAC: Present. UTERUS: Normal size and appearance. OVARIES: Right: Normal. Left: Normal. CERVIX: 3.5 cm in length and closed. CUL-DE-SAC: Normal. OTHER: None. AGE BY LMP: 9 weeks 2 days BEHZAD BY LMP: 09/19/2022 AGE BY US CRL: 9 weeks 0 days BEHZAD BY US CRL: 09/21/2022 IMPRESSION: 1. Single live intrauterine . Electronically authenticated by: LEIDY MAYROGA Date: 2022-02-16 20:53[facility]PREG QUANT HCGon 91-08-8537UEL SUIXV232 mIU/mLNormalSelect Medical Specialty Hospital - ColumbusComment on above:Performed By: #### PREGQNT #### [facility] [address] [place] [address] Dr. Ceasar MartinsHCG RANGESEE BELOWSelect Medical Specialty Hospital - ColumbusComment on above: Result Comment: 5-50 0.2-1 WEEK 50-500 1-2 WEEKS 100-5,000 2-3 WEEKS 500-10,000 3-4 WEEKS 1,000-50,000 4-5 WEEKS 10,000-100,000 5-6 WEEKS 15,000-200,000 6-8 WEEKS 10,000-100,000 2-3 MONTHSPerformed By: #### PREGQNT #### [facility] [address] [address] [address] Ceasar MartinsPREG QUANT HCGon 69-69-1993NEE QUANT79 mIU/mLNGlenbeigh HospitalComment on above:Performed By: #### CBC #### [facility] [address] [address] [address] Ceasar MartinsHCG [facility] HospitalComment on above: Result Comment: 5-50 0.2-1 WEEK 50-500 1-2 WEEKS 100-5,000 2-3 WEEKS 500-10,000 3-4 WEEKS 1,000-50,000 4-5 WEEKS 10,000-100,000 5-6 WEEKS 15,000-200,000 6-8 WEEKS 10,000-100,000 2-3 MONTHSPerformed By: #### CBC #### [facility] [address] [address] [address] Ceasar Martins Vital Signs Date TimeVital SignValuePerforming RagcsjmuoSofrkyib49-44-1412 08:50-0500Body mass index (BMI) [Ratio]30.82 kg/e6Ebcdr Roberto Carlos DO Work Phone: [facility] HealthcareMbvbnftprz97-42-3814 08:50-0500Body pzajpu77.27 kgCorey Roberto Carlos DO Work Phone: [facility] HealthcareIaiyrmgjog73-12-1387 08:50-0500Diastolic blood ahjvrvtp00 mm[Hg]Pedro Roberto Carlos DO Work Phone: [facility] HealthcareTqhhhmdkun56-81-8697 08:50-0500Systolic blood qwdlytno083 mm[Hg]Pedro Roberto Carlos DO Work Phone: [facility] HealthcareXqkqhkaejf59-96-6573 09:30-0400Body lirusu564.18 cmOhio [facility]04-06-2024 09:30-0400Body mass index (BMI) [Ratio]32.7 kg/u9ZwtbnvdiiOhio State University [facility]04-06-2024 09:30-0400Body wrrrasplhqs36.8 [degF][facility]04-06-2024 09:30-0400Body .8 kgOhio [facility]04-06-2024 09:30-0400Heart rate94 /[facility]04-06-2024 09:30-0400Respiratory rate16 /[facility]04-06-2024 09:30-0730QuE8% (BldA) [Mass fraction]98 %[facility]03-01-2023 02:06-0500Body weight 80.2872 kgDR PEDRO AZEVEDO .The [facility] Medical CenterComment on above:Performed By: #### CBC #### [facility] [address] [address] [address] Ceasar Martins Encounters Encounter DateEncounter TypeCare ProviderFacilityStart: 11-13-2024 End: 56-24-3123Bfjnxrnae encounterAnia Montero MD Work Phone: [facility] MedinceStart: 02-23-2024 End: 88-21-4030Sacgec flowsheetCorey Roberto Carlos DO Work Phone: [facility] OBStart: 02-23-2024 End: 48-36-6441Qoiffr flowsheetCorey Roberto Carlos DO Work Phone: [facility] BCP OBStart: 02-23-2024 End: 74-21-8715Ztjrfdj encounter procedureCorey Roberto Carlos DO Work Phone: [facility] Work Phone: Start: 02-23-2024 End: 07-69-0022Upmwxyqo preventive med est patient 18-39 yrsCorey Roberto Carlos DO Work Phone: [facility] BCP OBComment on above:Well woman exam with routine gynecological examStart: 02-23-2024 End: 13-03-9260avtztsjuxqJHEKU FAZIONot AvailableStart: 08-04-2023 End: 78-85-6452uhlnfyrtdzAFW RAMEYNot AvailableStart: 07-07-2023 End: 48-97-2028dvrbokbfibHVX RAMEYNot AvailableStart: 16-43-4697Uoceuivcd encounterRyan Noss LGC Work Phone: Genetic HealthcareStart: 06-06-2023 End: 62-61-3520flnquokjhjYTJGG SHAYCYNTHIAMikey ALDAFacility:[facility] Start: 06-04-2023 End: 75-15-4227hihvsptjvdTjhvvzwlwChildren's Hospital of [facility] Work Phone: Start: 06-04-2023 End: 35-31-5890Aaejtmq encounter procedureFormerly [facility] Work Phone: Start: 05-24-2023 End: 86-23-0086kqrvywtanaPahu Noss [facility] Work Phone: Genetic HealthcareComment on above: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); Family history of pancreatic cancerStart: 05-24-2023 End: 11-36-8497Canrqzurjzce consultation with Dawit Garces [facility] Work Phone: [facility] MAINStart: 03-30-2023 End: 49-83-6920ncmezletklMNJIJF ORDOÑEZ VNot AvailableStart: 03-09-2023 End: 51-75-9873dsbteoomkjPULYWA ORDOÑEZ VNot AvailableStart: 06-09-2022 End: 82-65-4100cgtsriqsoePCX RAMEY .Facility:Y8Hapgo: 05-03-2022 End: 94-70-9889cqhwanrcymXX PEDRO ROBERTO CARLOS .Facility:E2Esrsu: 04-24-2022 End: 53-50-5348rmcmseyiyrWX PEDRO ROBERTO CARLOS .Facility:I5Krmdc: 04-13-2022 End: 68-95-6679nxkxfgipjuIH PEDRO ROBERTO CARLOS .Facility:O1Gyqnj: 03-09-2022 End: 41-64-0373mlikrmzlvvOK PEDRO ROBERTO CARLOS .Facility:C9Zjqef: 02-16-2022 End: 47-61-5001mvdzigycktQC PEDRO ROBERTO CARLOS .Facility:Z6Phdgg: 01-16-2022 End: 18-31-2129lgtsjidakmIK PEDRO ROBERTO CARLOS .Facility:V7Nzdks: 01-14-2022 End: 75-43-4121yxzugtbtrqEN PEDRO AZEVEDO .Facility: Procedures DateProcedureProcedure DetailPerforming ClinicianStart: 42-48-0449Jbwwm Charmaine (POC) Plan of Treatment DateCare ActivityDetailAuthorStart: 02-25-2025 End: 75-83-4425Wwwtvbu encounter bugszvhtg67/29/2025 8:40 AM EST Office Visit [facility] [address] [place] [place] [id number] Pedro Azevedo, DO [address] [place] [address] [facility] OBStart: 91-17-8148Tquzikaxx vaccination Influenza Vaccine (#1)NOM HealthcareStart: 44-91-8397Njqiz microalbumin profile DTaP,Tdap,Td Vaccine (7 - Td or Tdap)[facility]: 02-23-2024 End: 78-10-0894Qxqgdip encounter sufpkjbqm26/26/2024 9:10 AM EST Office Visit [facility] [address] [facility] [place] [id number] Pedro Azevedo, DO [address] [place], [place] [id number] ArrivedNOMS [facility]ALTH OBComment on above:ArrivedStart: 13-59-8157Iyqoumjkv vaccinationInfluenza Vaccine (#1)[facility] HealthcareStart: 05-24-2023 End: 87-86-9812QQEK SEND OUT TST 1MISC SEND OUT TST 1 Lab Routine Congenital hypertrophy of retinal pigment epithelium Family historyof pancreatic cancer Expected: 05/24/2023, Expires: 08/23/2023[facility] Work Phone: comment on above:Expected: 05/24/2023, Expires: 08/23/2023Start: 71-64-3722Ynzyomnsvf Health ScreeningBehavioral Health ScreeningElyria Memorial Hospitaltart: 39-90-8171Yniazkkhzs AssessmentDepression AssessmentCleGeorgetown Behavioral Hospitaltart: 78-07-3182Cutdh-19 Vaccine ( season) Covid-19 Vaccine ( season)[facility] Hospitaltart: 85-20-9723Anjjlauzw for malignant neoplasm of cervixPap TestingElyria Memorial Hospitaltart: 99-01-5414PJ (Gonorrhea) Screening (18-24)GC (Gonorrhea) Screening (18-24)[facility] Start: 49-67-6948Xefgbwryo C screeningHepatitis C ScreeningBarnesville Hospital Start: 89-69-3830PRQ screeningHIV ScreeningElyria Memorial Hospitaltart: 07-27-2019 Screening for Chlamydia trachomatisChlamydia Screening (18-24)[facility] Start: 60-30-0509Dajvwjmkufxbi B Vaccine: Consider Based On Risk (1 of 2 - Patient Seeks Protection)Meningococcal B Vaccine: Consider Based On Risk (1 of 2 - Patient Seeks Protection)[facility] Hospitaltart: 97-80-7524Kopm To Adult Transition Annual AssessmentPeds To Adult Transition Annual AssessmentElyria Memorial Hospitaltart: 27-45-1080Pcpg To Adult Transition Initial DiscussionPeds To Adult Transition Initial DiscussionBarnesville HospitalCytology Cervical or vaginal smear or scraping studyPap Smear Pathology and Cytology Routine Well woman exam with routine gynecological exam Ordered: 02/23/2024[facility] [employer] Work Phone: comment on above:Ordered: 02/23/2024[facility] Immunizations Immunization DateImmunizationNotesCare IhghkqseBycizxyg53-30-9450bszijcbrn, injectable, quadrivalent, preservative freeCorey Roberto Carlos DO Work Phone: [facility] [employer] Work Phone: [phone] 282-688511141779-24-9136nairkhqzs virus vaccine, unspecified formulationCorey Roberto Carlos DO Work Phone: [facility] [employer] Payers DatePayer CategoryPayerPolicy [id number] (CHARI)MALATHI [id number] of Defense ( and others)[id number] [place] Blue ShieldO[facility] [id number] BLUE CARD PPO OOS [id number] 2020-Present [phone] [address] [place], [place] [id number] 20.1.785060.3.57[id number] 2..1.855432.3.57[id number] 2.0.1.127372.3.57[id number] 2.0.1.975822.3.57[id number] 2.0.1.343566.3.57[id number] 2.16.840.1.883540.3.57[id number] 2.16.840.1.303171.3.57[id number] 2.16.840.1.313294.3.579.[id number] 2.16.840.1.794501.3.57[id number] 2.16.840.1.161265.3.57[id number] 2.16.840.1.383852.3.57[id number] 2.16.840.1.310372.3.57[id number] 2.16.840.1.069594.3.579.2.543227-59-4396Umhrptzejk of Defense ( and others)[id number] Health [id number]-kuz [id number] Health InsuranceAetna Insurance [id number] 2..840.1.456555.3.579.2.593 Social History DateTypeDetailFacilityTobacco smoking status NHISTobacco smoking consumption unknownBarnesville Hospital Work Phone: Start: 01-05-2023 End: 61-29-6687Ojpnysg of Social functionNOMA HealthcareStart: 01-05-2023 End: 97-69-6194Viqx Deprivation IndexNOMS HealthcareNational Score (1-100), lower number is lower xrfb08AtzvpiqygElyria Memorial Hospitaltart: 54-45-8071Cdd Assigned At BirthNot on fileElyria Memorial Hospitaltart: 01-06-2023 End: 82-28-9992Lcntifx smoking status NHISNever smoked tobacco (finding) [facility]ertart: 40-59-4091Fpm Assigned At BirthFemale [facility]ertart: 81-78-7109Sanduoq use and exposure Smokeless tobacco non-userNOMS HealthcareStart: 08-04-2023 End: 43-92-4729Qhnzpzopz beverage intakeEx-drinker (finding)[facility] Within the last year, have you been afraid of your partner or ex-partner?NoNOMS HealthcareAre you now , , , , never or living with a partner?Never marriedNOMS HealthcareHow often to you have a drink containing alcohol?Monthly or lessNOMS HealthcareHow many standard drinks containing alcohol do you have on a typical day?1 or 2NOMS HealthcareHow often do you have 6 or more drinks on 1 occasion?NeverNOMS HealthcareDo you feel stress - tense, restless, nervous, or anxious, or unable to sleep at night because yourmind is troubled all the time - these days [OSQ]To some extentNOMS Healthcare(I/We) worried whether (my/our) food would run out before (I/we) got money to buy more.Never trueNOMS HealthcareStart: 29-55-1633Msjmqy identity Identifies as female gender (finding)[facility] Telephone encounter Note 11-13-2024 Note Date & HhuyBfmiRehvkxiw81-14-0698 Telephone encounter Note* Telephone Encounter - Torri Biswas - 11/13/2024 11:59 AM EDT Called and lvm with patient 3 times stating that she is due for an appt and has not been seen [id number]. No contact letter sent to patient address. [facility] Note 11-13-2024 Note Date & WvxmCozePxjpkovp65-37-0116 Miscellaneous Notes* Telephone Encounter - Torri Biswas - 11/13/2024 11:59 AM EDT Called and lvm with patient 3 times stating that she is due for an appt and has not been seen [id number]. No contact letter sent to patient address. documented in this encounterNOMS Healthcare History of Present illness Narrative 02-23-2024 Note Date & HmtvCmcsXujztinc71-95-9347 History of Present illness Narrative* Fiona Pimentel, DIESEL POWER SHOVEL OPERATOR - 02/23/2024 9:10 AM EST Reason for Appointment: Patient ID: Hugh Patel is a 23 y.o. female who presents for Well Women Visit Patient presents today for Annual Exam. 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 Familial adenomatous polyposis 03/09/2023 Encounter for other contraceptive management 09/14/2023 Weight gain 12/02/2023 Resolved Ambulatory Problems Diagnosis Date Noted No Resolved Ambulatory Problems Past Medical History: Diagnosis Date Ovarian cyst, left 06/07/2020 Rectal bleeding HISTORY PAST MEDICAL HISTORY SOCIAL HISTORY Past Medical History: Diagnosis Date Ovarian cyst, left 06/07/2020 Rectal bleeding Social History Tobacco Use Smoking status: Never Smokeless tobacco: Never Substance Use Topics Alcohol use: Not Currently Alcohol/week: 2.0 standard drinks of alcohol Types: 2 Standard drinks or equivalent per week Drug use: Never FAMILY HISTORY Family History [...] Objective: Physical Exam Constitutional: Appearance: Normal appearance. She is well-developed. Genitourinary: Vulva normal. Breasts: Breasts are soft. Right: Normal. Left: Normal. Cardiovascular: Rate and Rhythm: Normal rate and regular rhythm. Pulmonary: Effort: Pulmonary effort is normal. Breath sounds: Normal breath sounds. Abdominal: General: Bowel sounds are normal. There is no distension. Palpations: Abdomen is soft. Tenderness: There is no abdominal tenderness. There is no guarding or rebound. Musculoskeletal: General: No swelling. Normal range of motion. Right lower leg: No edema. Left lower leg: No edema. Neurological: Mental Status: She is alert and oriented to person, place, and time. Skin: General: Skin is warm and dry. Psychiatric: Mood and Affect: Mood normal. Behavior: Behavior normal. Vitals and nursing note reviewed. Exam conducted with a clinical fellow present. Vitals: Estimated body mass index is 30.82 kg/m as calculated from the following: Height as of 24: 5' 7 . Weight as of this encounter: 196 lb 12.8 oz. BP: 110/70 Patient's last menstrual period was 02/08/2024. ASSESSMENT & PLAN ICD-10-CM 1. Well woman exam with routine gynecological exam Z01.419 Pap Smear Annual Exam: Patient presents today for an annual exam. Patient states she is doing well and has no complaints. Pap was obtained without difficulty. No orders of the defined types were placed in this encounter. Follow Up: Patient is to return in one year for annual unless needed otherwise. Documented by Fiona Pimentel LPN on behalf of: Pedro Azevedo DO documented in this encounterThree Rivers Healthcare Note 06-14-2023 Note Date & IawuWsxgSpcskutj39-03-5582 Miscellaneous Notes* Telephone Encounter - Isa Garces LGC - 06/14/2023 11:11 AM EDT Patient name and was confirmed at initiation of discussion. Hugh Patel's Multi-Cancer panel through [facility] was negative for a pathogenic variant. Please see [employer] message for further discussion. Isa Garces MS, CGC Licensed, Certified Genetic Counselor documented in this encounterBarnesville Hospital Progress note 05-24-2023 Note Date & PluyYfpsMyjqvdax64-42-3501 NoteHNO ID: [id number] Author: ISA GARCES LGC Service: ? Author Type: Genetic Counselor Type: Progress Notes Filed: 05/24/2023 09:34 Note Text: [facility] Consultation Note Genetic Counselor: Isa Garces MS, CGC Patient: Hugh Patel Patient Name and confirmed at initiation of visit. Appointment occurred with audiovisual communication through [employer] [facility] Visit. I have communicated my name and active licensure. The patient's identity and physical location were verified at the time of this visit. Either the patient or their legal education courses sales representative has been informed of the risks and benefits of -- and alternatives to -- treatment through a remote evaluation and consents to proceed with the evaluation remotely. HIGH LEVEL SUMMARY: The patient's personal and family history is potentially suggestive of hereditary cancer syndromes. The patient provided informed consent for Multi-Cancer panel through [facility]. Results are expected in 2-3 weeks. IDENTIFICATION AND CHIEF COMPLAINT: Dr. Linden Ordoñez requested a consultation for genetic counseling and risk assessment for Hugh Patel, a 22 year old female, for discussion of her recent diagnosis of CHRPE. She presents to clinic today to discuss the possibility of a genetic predisposition to cancer, and to further clarify her risks, as well as her family members' risks for cancer. HISTORY OF PRESENT ILLNESS: Hugh Patel is a 22 year old female with no personal history of cancer. She was recently found to have a CHRPE at an eye exam. She was referred to a plate corrector and had a normal colonoscopy. Hugh presents to Genetics to discuss possibility of FAP. FAMILY HISTORY: We obtained a detailed, 4-generation family history. Significant diagnoses are listed below: Maternal uncle: bowel surgeries but due to unknown reasons Maternal grandfather: pancreatic cancer Unknown paternal history GENETIC COUNSELING RISK ASSESSMENT, DISCUSSION, AND SUGGESTED FOLLOW UP: We reviewed the natural history and genetic etiology of sporadic, familial and hereditary cancer syndromes. The patient's personal and family history is potentially suggestive of hereditary cancer syndromes. We discussed that identification of a hereditary cancer syndrome may help her care providers tailor her medical management. If a mutation is detected, the patient will be referred back to the referring provider and to any additional appropriate care providers to discuss the relevant options. Inheritance of hereditary cancer syndromes was discussed with the patient. If a mutation is not found in the patient, this will decrease the likelihood of hereditary cancer syndromes for the patient, however it cannot rule it out as the explanation for the family history of pancreatic cancer. Cancer surveillance options would be discussed for the patient according to the appropriate standard National Comprehensive Cancer Network and [employer] guidelines, with consideration of their personal and family history risk factors. In this case, the patient will be referred back to their care providers for discussions of management. Based on this assessment of the patient's family and personal history, genetic testing is recommended. Reviewed that CHRPEs can be an isolated finding but can also be related to Familial Adenomatous Polyposis, which is caused by mutations in APC. Discussed pancreatic cancer could also have a hereditary causer but independent of APC. Therefore, options of testing solely APC or pursuing a multigene panel that includes APC. After considering the risks, benefits, and limitations, the patient chose to pursue and provided informed consent for the following testing: Multi-Cancer panel through [facility]. The Multi-Cancer Panel includes AIP, ALK, APC, HEDY, AXIN2, BAP1, BARD1, BLM, BMPR1A, BRCA1, BRCA2, BRIP1, CDC73, CDH1, CDK4, CDKN1B, CDKN2A, CHEK2, CTNNA1, DICER1, EGFR, EPCAM, FH, FLCN, GREM1, HOXB13, KIT, LZTR1, MAX, MBD4, MEN1, MET, MITF, MLH1, MSH2, MSH3, MSH6, MUTYH, NF1, NF2, NTHL1, PALB2, PDGFRA, PMS2, POLD1, POLE, POT1, BCDMH9J, PTCH1, PTEN, RAD51C, RAD51D, RB1, RET, SDHA, SDHAF2, SDHB, SDHC, SDHD, SMAD4, SMARCA4, SMARCB1, SMARCE1, STK11, SUFU, ISFB252, TP53, TSC1, TSC2, and VHL The Multi-Cancer panel looks at genes associated with cancers of the breast, gynecologic tract (ovarian, uterine/endometrial), gastrointestinal system (colorectal, gastric, pancreatic), endocrine glands (thyroid, parathyroid, pituitary, adrenal glands), genitourinary tract (renal/urinary tract, prostate), skin (melanoma, basal cell carcinoma), and brain/nervous system. We discussed that an NGS panel can rarely result in an unexpected finding which may or may not be related to the presenting phenotype. We discussed that [facility] may c (more content not included)...[place] History of Present illness Narrative 05-24-2023 Note Date & [id number] History of Present illness Narrative* Isa Garces LGC - 05/24/2023 9:13 AM EDT [facility] Consultation Note Genetic Counselor: Isa Garces, MS, [facility] Patient: Hugh Patel Patient Name and confirmed at initiation of visit. Appointment occurred with audiovisual communication through [employer] [facility]. I have communicated my name and active licensure. The patient's identity and physical location wereverified at the time of this visit. Either the patient or their legal education courses sales representative has been informed of the risks and benefits of -- and alternatives to -- treatment through a remote evaluation andconsents to proceed with the evaluation remotely. HIGH LEVEL SUMMARY: The patient's personal and family history is potentially suggestive of hereditary cancer syndromes. The patient provided informed consent for Multi-Cancer panel through [facility]. Results are expected in 2-3 weeks. IDENTIFICATION AND CHIEF COMPLAINT: Dr. Linden Ordoñez requested a consultation for genetic counseling and risk assessment for Hugh Patel, a 22 year old female, for discussion of her recent diagnosis of CHRPE. She presents to clinic today to discuss the possibility of a genetic predisposition to cancer, and to further clarify her risks, as well as her family members' risks for cancer. HISTORY OF PRESENT ILLNESS: Hugh Patel is a 22 year old female with no personal history of cancer. She was recently found to have a CHRPE at an eye exam. She was referred to a plate corrector and had a normal colonoscopy. Hugh presents to Genetics to discuss possibility of FAP. FAMILY HISTORY: We obtained a detailed, 4-generation family history. Significant diagnoses are listed below: Maternal uncle: bowel surgeries but due to unknown reasons Maternal grandfather: pancreatic cancer Unknown paternal history GENETIC COUNSELING RISK ASSESSMENT, DISCUSSION, AND SUGGESTED FOLLOW UP: We reviewed the natural history and genetic etiology of sporadic, familial and hereditary cancer syndromes. The patient's personal and family history is potentially suggestive of hereditary cancer syndromes. We discussed that identification of a hereditary cancer syndrome may help her care providers tailorher medical management. If a mutation is detected, the patient will be referred back to the referring provider and to any additional appropriate care providers to discuss the relevant options. Inheritance of hereditary cancer syndromes was discussed with the patient. If a mutation is not found in the patient, this will decrease the likelihood of hereditary cancer syndromes for the patient, however it cannot rule it out as the explanation for the family history ofpancreatic cancer. Cancer surveillance options would be discussed for the patient according to the appropriate standard National Comprehensive Cancer Network and [place] guidelines, with consideration of their personal and family history risk factors. In this case, the patient will be referred back to their care providers for discussions of management. Based on this assessment of the patient's family and personal history, genetic testing is recommended. Reviewed that CHRPEs can be an isolated finding but can also be related to Familial Adenomatous Polyposis, which is caused by mutations in APC. Discussed pancreatic cancer could also have a hereditary causer but independent of APC. Therefore, options of testing solely APC or pursuing a multigenepanel that includes APC. After considering the risks, benefits, and limitations, the patient chose to pursue and provided informed consent for the following testing: Multi-Cancer panel through [facility]. The Multi-Cancer Panel includes AIP, ALK, APC, HEDY, AXIN2, BAP1, BARD1, BLM, BMPR1A, BRCA1, BRCA2, BRIP1, CDC73, CDH1, CDK4, CDKN1B, CDKN2A, CHEK2, CTNNA1, DICER1, EGFR, EPCAM, FH, FLCN, GREM1, HOXB13, KIT, LZTR1, MAX, MBD4, MEN1, MET, MITF, MLH1, MSH2, MSH3, MSH6, MUTYH, NF1, NF2, NTHL1, PALB2, PDGFRA, PMS2, POLD1, POLE, POT1, AWMUA2X, PTCH1, PTEN, RAD51C, RAD51D, RB1, RET, SDHA, SDHAF2, SDHB, SDHC, SDHD, SMAD4, SMARCA4, SMARCB1, SMARCE1, STK11, SUFU, [id number], TP53, TSC1, TSC2, and VHL The Multi-Cancer panel looks at genes associated with cancers of the breast, gynecologic tract (ovarian, uterine/endometrial), gastrointestinal system (colorectal, gastric, pancreatic), endocrine glands (thyroid, parathyroid, pituitary, adrenal glands), genitourinary tract (renal/urinary tract, prostate), skin (melanoma, basal cell carcinoma), and brain/nervous system. We discussed that an NGS panel can rarely result in an unexpected finding which may or may not be related to the presenting phenotype. We discussed that [facility] may contact the patient by text or email regarding billing. The patient should watch for this communication and respond promptly. The patient should contact [facility] directlywith any billing questions (ph. [phone]). Per the patient's request, I will contact her by telephone to discuss these results. A follow up genetic counseling visit will be scheduled if requested. The patient was seen for a total of 30 minutes, greater than 50% of which was spent [id number] counseling. This plan is being carried out under the oversight of Dr. Margaret Ge. This note will also be sent to the referring provider via the electronic medical record. Isa Garces MS, [facility] Licensed, Certified Genetic Counselor [facility] CC: Dr. 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 Family history of pancreatic cancer Family history of malignant neoplasm of gastrointestinal tract documented in this encounter [facility] Evaluation note Note Date & TypeNoteFacilityEvaluation noteNo assessment information available [facility] Work Phone: Evaluation note Note Date & TypeNoteFacilityEvaluation note* Diagnosis Well woman exam with routine gynecological exam Routine gynecological examination documented in this encounter [facility] Summary Purpose Family History No Family History Records FoundNo Family History Records FoundNo Family History Records Found Advance Directives Advance Directive Response Recorded Date/ Time Advance Directives No June 27 018 1:17pm Chief Complaint and Reason for Visit Chief Complaint Cough, congestion, s ore throat, headache Additional Source Comments INFORMATION SOURCE (unrecogn ized section and content) DATE CREATED AUTHOR 06/16/2022 [facility] DATE CREATED AUTHOR AUTHOR'S ORGANIZ ATION 06/15/2023 [place] DATE CREATED AUTHOR AUTHOR'S ORGANIZ ATION 02/24/2024 [facility] EPIC Source Comments (unrecognize d section and content) In the event this informatio n is protected by the Federal Confidentiality of Alcohol and Drug Abuse Patient Records regulations: The Federal rules restrict any use of the information to criminally investigate or prosecute any alcohol or drug abuse patient.[facility] HospitalIn the event this information is protected by the Federal Confidentiality of Alcohol and Drug Abuse Patient Records regulations: The Federal rules restrict any use of the information to criminally investigate or prosecute any alcohol or drug abuse patient.[facility] Reason for Visit (unrecogniz ed section and content) ReasonCommentsEye ComplaintReasonCommentsWell Women Visit Care Teams (unrecognized sec tion and content) Team MemberRelationshipSpecialtyStart DateEnd Date Ania Montero MD [address] [place] [address] [facility]03/30/23 Team Status: Active Member Role Status Dates Ania Montero MD Primary Care Provider Active Team Status: Inactive Member Role Status Dates Joellen Mata APRN Attending Provider Active Start: June 04, 2023 End: June 03Justin Guevara Care ProviderActiveStart: June 04, 2023 End: June 04, 2023Team MemberRelationshipSpecialtyStart DateEnd Date Ania Montero MD [address] [place] [address] [facility]03/30/23Team MemberRelationshipSpecialtyStart DateEnd Date Ania Montero MD [address] [place] [address] PCP - General07/28/22 Christian Blake MD [address] [place] [address] [facility]23Te MemberRelationshipSpecialtyStart DateEnd Date Ania Montero MD [address] [place] [address] PCP - General07/28/22 Christian Blake MD [address] [place] [address] [facility]02/28/23Te MemberRelationshipSpecialtyStart DateEnd Date Ania Montero MD [address] [place] [address] PCP - [facility]07/28/22 Goals (unrecognized section and content) Goals may be documented in a n alternate section FOR RECORDS PERTAINING TO PATIENTS WHO ARE OR HAVE BEEN ENROLLED IN A CHEMICAL DEPENDENCY/SUBSTANCEABUSE PROGRAM, SOME INFORMATION MAY BE OMITTED. This clinical summary was aggregated from multiple sources. Caution should be exercised in using it in the provision of clinical care. This summary normalizes information from multiple sources, and as a consequence, information in this document may materially change the coding, format and clinical context of patient data. In addition, data may be omitted in some cases. CLINICAL DECISIONS SHOULD BE BASED ON THE PRIMARY CLINICAL RECORDS. [facility]. provides no warranty or guarantee of the accuracy or completeness of information in this document.
[2025-03-01 16:08] LABS: Age Gdln ACOG Testing Note (.); IGP, rfx Aptima HPV ASCU Note (.)
== END 2025-02-26 18:57 | disposition home or self-care (01) ==
LOC: LAB 18:56
PROVIDERS: PCP Obstetrics & Gynecology; Visit Provider Physician Assistant
DX: Z01.419 Encounter for gynecological examination (general) (routine) without abnormal findings (principal)
CPT/HCPCS: 88175